=== PATIENT | female | born 1940 | race Caucasian/White ===

== ENCOUNTER 2016-04-07 09:40 | Day surgery (SDC) | payer MEDICARE, BC ==
[2016-04-02 13:28] VITALS: BMI 16.5
[~2016-04-07 09:40] MED LIST: LACTATED RINGERS 1,000 ML IV SCH; LIDOCAINE 1% 20 ML VIAL (10MG/ML) FOR IV START INTRADERMA PRN
[2016-04-07 10:47] VITALS: TEMP 97.7
[2016-04-07] MEDS ORDERED: PROPOFOL 10 MG/ML 20 ML VIAL IV ONE (11:07)
--- NOTE | 2016-04-07 11:26 | P.PCN ---
Date of Procedure: 04/07/16 Procedure(s) Performed: BRIEF HISTORY: Patient is a 75-year-old pleasant white female, scheduled for an elective colonoscopy as a part of evaluation of screening for colorectal neoplasia. She was recently noted to have a positive cologard on stool testing. PROCEDURE PERFORMED: Colonoscopy with snare polypectomy. PREOPERATIVE DIAGNOSIS: Screening for colon cancer/positive stool testing for cologard. IV sedation per Anesthesia. PROCEDURE: After informed consent was obtained, the patient, was brought into the endoscopy unit. IV conscious sedation was administered by Anesthesia under continuous monitoring. Initially the Olympus CF-160 flexible video colonoscope was then inserted in the rectum, gradually advanced into the cecum without any difficulty. Careful examination was performed as the scope was gradually being withdrawn. Ileocecal valve and the appendiceal orifice were visualized and appeared normal. Prep was excellent. Mucosa of the cecum, appeared normal. On the ileocecal valve there was a 1 cm polyp removed by snare polypectomy. The rest of the ascending colon, transverse colon, descending colon, sigmoid colon, and rectum appeared normal. In the proximal rectum there was a 5 mm polyp removed by snare polypectomy. Retroflexion was performed in the rectum and no lesions were seen. The patient tolerated the procedure well. IMPRESSION: 1 cm polyp on the ileocecal valve status post polypectomy 5 mm proximal rectal polyp status post polypectomy RECOMMENDATIONS: Findings of this examination were discussed with the patient as well as a family. She was advised to follow with the biopsy results. If the biopsy shows a tubular adenoma she can have a repeat colonoscopy in 3 years.
[2016-04-07 12:07] VITALS: BP 138/66; PULSE 93; RESP 18
== END 2016-04-07 12:16 | disposition home or self-care (01) ==
LOC: ORWHC2ENDO 09:40
PROVIDERS: ATTEND Internal Medicine Gastroenterology
DX: Z12.11 Encounter for screening for malignant neoplasm of colon (principal); D12.0 Benign neoplasm of cecum; K62.1 Rectal polyp; I10 Essential (primary) hypertension; J44.9 Chronic obstructive pulmonary disease, unspecified; Z72.0 Tobacco use; Z79.899 Other long term (current) drug therapy; Z88.0 Allergy status to penicillin
CPT/HCPCS: 88305; 45385; J2704; 99153

== ENCOUNTER → 2016-04-29 | Outpatient (CLI) | payer MEDICARE, BC ==
[~2016-04-29] MED LIST changes: +DOBUTamine DRIP for NUC MED 500 MG in DEXTROSE/WATER 1 250ML.BAG IV ONE; -LACTATED RINGERS 1,000 ML IV SCH; -LIDOCAINE 1% 20 ML VIAL (10MG/ML) FOR IV START INTRADERMA PRN
--- NOTE | 2016-04-30 12:32 | ECHOS ---
DATE OF SERVICE: 04/29/2016 AGE: 75Y SEX: F HT: 63" WT: 90 lbs. Protocol Paul: X Others: Dobutamine Stress Echo Stage: Dur. of Exercise: *Heart Rate Blood Pressure *Rest: 89 Rest: 96/52 * *Max. Achieved: 129 Maximum BP: 90/60 85% PMHR: 124 100% PMHR: 146 *METS: INDICATIONS: Abnormal EKG. MEDICATIONS: Pulmicort, losartan, Pravachol. Patient was given dobutamine infusion according to the standard protocol. Peak heart rate of 129 was achieved. Maximum blood pressure of 90/60 mmHg was noted. Resting EKG shows normal sinus rhythm with normal NH interval and QRS duration and normal ST-T waves. No ST segment depression suggestive of ischemia is noted. Occasional PACs were noted. The baseline echocardiographic images reveals a normal left ventricular chamber size with normal left ventricular systolic function. At the peak dose of dobutamine infusion, normal increase in the wall thickness and contractility is noted. FINAL IMPRESSION: This dobutamine stress echocardiographic study is negative for stress-induced ischemia. EKG portion of the stress test is not suggestive of ischemia. Occasional PVCs are noted.
== END | disposition home or self-care (01) ==
LOC: RADNMMAIN 09:06
PROVIDERS: ATTEND Family Medicine
DX: R94.31 Abnormal electrocardiogram [ECG] [EKG] (principal)
CPT/HCPCS: 93017; 93350; J1250

== ENCOUNTER → 2017-06-29 | Outpatient (CLI) | payer MEDICARE, BC ==
--- NOTE | 2017-06-29 12:59 | US ---
EXAMINATION TYPE: US kidneys/renal and bladder DATE OF EXAM: 06/29/2017 COMPARISON: 11/13/2013 CLINICAL HISTORY: N17.9 Acute Kidney Injury. not symptomatic EXAM MEASUREMENTS: Right Kidney: 6.8 x 2.9 x 2.6 cm Left Kidney: 12.9 x 5.3 x 4.7 cm Right Kidney: smaller in size with cortical thinning Left Kidney: 4.7cm inferior pole cyst appears larger from previous exam Bladder: wnl Bilateral Jets seen: Yes IMPRESSION: 1. There is a 4.7 cm cyst left kidney is increased in size from the previous exam but has a simple ap pearance compatible with Bosniak classification 1 cyst. 2. Atrophy of the right kidney. Appears to be reduced in size relative to the previous exam where it measured 10.2 x 4.3 x 3.6 cm.
== END | disposition home or self-care (01) ==
LOC: RADUSWWP 06-28 12:15
PROVIDERS: ATTEND Internal Medicine Nephrology
DX: N28.1 Cyst of kidney, acquired (principal); N26.1 Atrophy of kidney (terminal); N17.9 Acute kidney failure, unspecified
CPT/HCPCS: 76770

== ENCOUNTER → 2017-10-28 | Outpatient (CLI) | payer MEDICARE, BC ==
[~2017-10-28] MED LIST changes: +DENOSUMAB 60 MG/ML 1 ML SYRINGE SQ ONE; -DOBUTamine DRIP for NUC MED 500 MG in DEXTROSE/WATER 1 250ML.BAG IV ONE
[2017-10-28 11:43] VITALS: BP 131/61; PULSE 100; RESP 16; TEMP 97.8
== END | disposition home or self-care (01) ==
LOC: PROCWHC3 11:34
PROVIDERS: ATTEND Nurse Practitioner Adult Health
DX: M81.0 Age-related osteoporosis without current pathological fracture (principal)
CPT/HCPCS: 96372; J0897

== ENCOUNTER → 2018-03-28 | Outpatient (CLI) | payer MEDICARE, BC ==
--- NOTE | 2018-03-28 13:08 | CTL ---
EXAMINATION TYPE: CT Low Dose Lung DATE OF EXAM ORDERED: 03/28/2018 HISTORY: . Lung cancer screening CT DLP: [address] CTDI: 1.38 mGy Automated exposure control for dose reduction was used. SCREENING VISIT: COMPARISON: 02/14/2017 TECHNIQUE: Low dose computed tomography scan was performed through the chest at 1 mm thick sections a nd reconstructed images in the coronal plane at [address] DIAGNOSTIC QUALITY: Satisfactory FINDINGS: LUNG NODULES: None. LUNGS: COPD: Severity: Emphysematous changes stable Fibrosis: Severity: Stable interlobular septal thickening compatible with chronic interstitial lung d isease. Lymph nodes: Calcified mediastinal nodes are again seen. RIGHT PLEURAL SPACE: Effusion: None Calcification: None Thickening: Moderate apical pleural thickening Pneumothorax: None LEFT PLEURAL SPACE: Effusion: None Calcification: None Thickening: Moderate apical pleural thickening increased in size and somewhat nodular. Pneumothorax: None HEART: Heart Size: Within normal limits for size Coronary calcification: Extensive dense coronary artery calcification Pericardial effusion: None OTHER FINDINGS: Upper abdomen: Atherosclerotic change of aorta and mesenteric vasculature. 1.4 cm hepatic lesion dasia uring 14 Hounsfield units Bony thorax: Hypertrophic and degenerative changes. Supraclavicular region: Stable Other: Splenic calcifications likely related to granuloma. 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 IMPRESSION: 1. No suspicious nodules identified. Pleural apical thickening stable 2. Extensive mediastinal adenopathy and findings compatible with previous granulomatous disease. 3. Emphysematous changes and findings compatible with chronic interstitial lung disease. 4. Indeterminate hepatic lesion likely related to hepatic cyst. Correlate with ultrasound. FOLLOW UP CT CHEST RECOMMENDATION: Follow-up in one year recommended CT LUNG RAD: Lung-Rad 1 Negative
== END | disposition home or self-care (01) ==
LOC: RADCTMAIN 12:01
PROVIDERS: ATTEND Family Medicine
DX: Z12.2 Encounter for screening for malignant neoplasm of respiratory organs (principal); J92.9 Pleural plaque without asbestos; R59.0 Localized enlarged lymph nodes; J43.9 Emphysema, unspecified; Z87.891 Personal history of nicotine dependence

== ENCOUNTER → 2018-04-19 | Outpatient (CLI) | payer MEDICARE, BC ==
--- NOTE | 2018-04-19 16:04 | US ---
EXAMINATION TYPE: US liver DATE OF EXAM: 04/19/2018 COMPARISON: CLINICAL HISTORY: K76.89 DISEASE OF LIVER. Liver cysts, no surgeries EXAM MEASUREMENTS: Liver Length: 14.2 cm Gallbladder Wall: 0.2 cm CBD: 0.2 cm Right Kidney: 6.9 x 3.0 x 2.7 cm Pancreas: Tail obscured by overlying bowel gas. Main pancreatic duct - 0.2 cm. Echogenic in appear ance Liver: Multiple cystic appearing lesions seen. Largest were measured. Right posterior lobe - 1.1 x 1.3 x 1.0 cm. Right lobe anterior - 1.3 x 0.9 x 1.0 cm Gallbladder: wnl Evidence for sonographic Henning's sign: neg CBD: wnl Right Kidney: Appears small in size. Cortical thinning. Prominent pyramids. IMPRESSION: 1. Multiple hepatic cysts. 2. Cortical thinning and atrophic change right kidney.
== END | disposition home or self-care (01) ==
LOC: RADUSWWP 15:13
PROVIDERS: ATTEND Family Medicine
DX: K76.89 Other specified diseases of liver (principal); N26.1 Atrophy of kidney (terminal)
CPT/HCPCS: 76705

== ENCOUNTER → 2018-05-03 | Outpatient (CLI) | payer MEDICARE, BC ==
[2018-05-03 11:20] VITALS: BP 133/68; PULSE 96; RESP 16; TEMP 97.7
== END | disposition home or self-care (01) ==
LOC: PROCWHC3 11:00
PROVIDERS: ATTEND Nurse Practitioner Adult Health
DX: M81.0 Age-related osteoporosis without current pathological fracture (principal)
CPT/HCPCS: 96372; J0897

== ENCOUNTER → 2018-11-02 | Outpatient (CLI) | payer MEDICARE, BC ==
[2018-11-02 13:00] VITALS: BP 154/56; PULSE 99; RESP 18; TEMP 97.8
== END | disposition home or self-care (01) ==
LOC: PROCWHC3 12:50
PROVIDERS: ATTEND Nurse Practitioner Adult Health
DX: M81.0 Age-related osteoporosis without current pathological fracture (principal)
CPT/HCPCS: 96372; J0897

== ENCOUNTER 2019-03-23 13:37 | Inpatient (IN) | payer MEDICARE, BC ==
--- NOTE | 2019-03-23 14:24 | ED ---
General Adult HPI - General Chief complaint: Recheck/Abnormal Lab/Rx Stated complaint: Abn EKG Time Seen by Provider: 03/23/19 13:55 Source: patient, RN notes reviewed, old records reviewed Mode of arrival: ambulatory Limitations: no limitations - History of Present Illness Initial comments: This is a 78-year-old female presents emergency Department complaining of shortness of breath and dizziness. Patient states she saw her primary medical care doctor in the past for this and was treated with steroids and antibiotics and she has not improved. Patient states she still has a couple days left of her steroids. Patient states he still remained short of breath and coughs occasionally only. Patient denies any chest pain or palpitations. Patient also complains of dizziness and she states is been ongoing a couple weeks. Patient states she has a sensation that she's been a fall and no sensation of passing out or passing out. Patient states she feels off balance. Patient denies any fever or chills. Patient denies any abdominal pain patient denies nausea vomiting. - Related Data Home Medications Medication Instructions Recorded Confirmed ALPRAZolam [Xanax] 0.25 mg PO DAILY PRN 04/02/16 11/02/18 Albuterol Inhaler [Ventolin Hfa 2 puff INHALATION HS 04/02/16 11/02/18 Inhaler] Albuterol Nebulized [Ventolin 2.5 mg INHALATION BID 04/02/16 11/02/18 Nebulized] Anastrozole [Arimidex] 1 mg PO DAILY 04/02/16 11/02/18 Calcium Carbonate [Calcium] 1,200 mg PO DAILY 04/02/16 11/02/18 Cholecalciferol [Vitamin D3] 2,000 unit PO DAILY 04/02/16 11/02/18 Losartan Potassium [Cozaar] 50 mg PO HS 04/02/16 11/02/18 Pravastatin Sodium [Pravachol] 40 mg PO DAILY 04/02/16 11/02/18 amLODIPine BESYLATE [Norvasc] 10 mg PO DAILY 04/02/16 11/02/18 Allergies Allergy/AdvReac Type Severity Reaction Status Date / Time Penicillins Allergy Rash/Hives Verified 03/23/19 13:54 brazil nuts Allergy Anaphylaxis Uncoded 03/23/19 13:54 Review of Systems ROS Statement: Those systems with pertinent positive or pertinent negative responses have been documented in the HPI. ROS Other: All systems not noted in ROS Statement are negative. Past Medical History Past Medical History: Cancer, COPD, Hyperlipidemia, Hypertension, Renal Disease Additional Past Medical History / Comment(s): hx: breast cancer, states was recently told that she may have some heart blockage issues plans to followup with piano teacher. KIDNEY AND LIVER CYST. OSTEOPOROSIS. History of Any Multi-Drug Resistant Organisms: None Reported Past Surgical History: Breast Surgery Additional Past Surgical History / Comment(s): lt mastectomy Past Anesthesia/Blood Transfusion Reactions: No Reported Reaction Past Psychological History: Anxiety Smoking Status: Heavy tobacco smoker Past Alcohol Use History: None Reported Past Drug Use History: None Reported - Past Family History Mother Family Medical History: Cancer Brother(s) Family Medical History: Cancer General Exam - General Exam Comments Initial Comments: GENERAL: Patient is well-developed and well-nourished. Patient is nontoxic and well- hydrated and is in mild distress. ENT: Neck is soft and supple. No significant lymphadenopathy is noted. Oropharynx is clear. Moist mucous membranes. Neck has full range of motion without eliciting any pain. Both TMs were visualized there did not appear to be any fluid redness or bulging of the TMs. EYES: The sclera were anicteric and conjunctiva were pink and moist. Extraocular movements were intact and pupils were equal round and reactive to light. Eyelids were unremarkable. PULMONARY: Patient has diminished breath sounds throughout. CARDIOVASCULAR: There is a regular rate and rhythm without any murmurs gallops or rubs. ABDOMEN: Soft and nontender with normal bowel sounds. No palpable organomegaly was noted. There is no palpable pulsatile mass. SKIN: Skin is clear with no lesions or rashes and otherwise unremarkable. NEUROLOGIC: Patient is alert and oriented x3. Cranial nerves II through XII are grossly intact. Motor and sensory are also intact. Normal speech, volume and content. Symmetrical smile. MUSCULOSKELETAL: Normal extremities with adequate strength and full range of motion. LYMPHATICS: No significant lymphadenopathy is noted PSYCHIATRIC: Normal psychiatric evaluation. Limitations: no limitations Course Vital Signs 03/23/19 03/23/19 03/23/19 13:52 14:28 15:35 Temperature 97.3 F L Pulse Rate 102 H 96 96 Respiratory 22 22 16 Rate Blood Pressure 135/85 181/93 181/93 O2 Sat by Pulse 94 L 92 L 94 L Oximetry Medical Decision Making - Medical Decision Making EKG shows sinus rhythm with occasional PVC at a rate of 90 bpm DC interval 124 tresses 88 QT interval 362 QTC is 462. Chest x-ray shows no acute abnormality. Patient continues to feel dizzy and still feels short of breath. - Lab Data Result diagrams: 03/23/19 14:27 03/23/19 14:27 Lab Results 03/23/19 03/23/19 03/23/19 Range/Units 14:27 14:27 14:27 WBC 12.6 H (3.8-10.6) k/uL RBC 5.07 (3.80-5.40) m/uL Hgb 15.4 (11.4-16.0) gm/dL Hct 44.3 (34.0-46.0) % MCV 87.4 (80.0-100.0) fL MCH 30.4 (25.0-35.0) pg MCHC 34.8 (31.0-37.0) g/dL RDW 12.7 (11.5-15.5) % Plt Count 221 (150-450) k/uL Neutrophils % 76 % Lymphocytes % 14 % Monocytes % 7 % Eosinophils % 1 % Basophils % 2 % Neutrophils # 9.5 H (1.3-7.7) k/uL Lymphocytes # 1.8 (1.0-4.8) k/uL Monocytes # 0.9 (0-1.0) k/uL Eosinophils # 0.1 (0-0.7) k/uL Basophils # 0.2 (0-0.2) k/uL PT (9.0-12.0) sec INR (<1.2) APTT (22.0-30.0) sec Sodium 136 L (137-145) mmol/L Potassium 3.4 L (3.5-5.1) mmol/L Chloride 97 L (98-107) mmol/L Carbon Dioxide 30 (22-30) mmol/L Anion Gap 9 mmol/L BUN 22 H (7-17) mg/dL Creatinine 0.88 (0.52-1.04) mg/dL Est GFR (CKD-EPI)AfAm 74 (>60 ml/min/1.73 sqM) Est GFR (CKD-EPI)NonAf 64 (>60 ml/min/1.73 sqM) Glucose 125 H (74-99) mg/dL Calcium 10.2 (8.4-10.2) mg/dL Magnesium 1.8 (1.6-2.3) mg/dL Total Bilirubin 0.8 (0.2-1.3) mg/dL AST 26 (14-36) U/L ALT 15 (4-34) U/L Alkaline Phosphatase 88 (38-126) U/L Troponin I (0.000-0.034) ng/mL NT-Pro-B Natriuret Pep 1050 pg/mL Total Protein 7.4 (6.3-8.2) g/dL Albumin 4.4 (3.5-5.0) g/dL 03/23/19 03/23/19 Range/Units 14:27 14:27 WBC (3.8-10.6) k/uL RBC (3.80-5.40) m/uL Hgb (11.4-16.0) gm/dL Hct (34.0-46.0) % MCV (80.0-100.0) fL MCH (25.0-35.0) pg MCHC (31.0-37.0) g/dL RDW (11.5-15.5) % Plt Count (150-450) k/uL Neutrophils % % Lymphocytes % % Monocytes % % Eosinophils % % Basophils % % Neutrophils # (1.3-7.7) k/uL Lymphocytes # (1.0-4.8) k/uL Monocytes # (0-1.0) k/uL Eosinophils # (0-0.7) k/uL Basophils # (0-0.2) k/uL PT 10.3 (9.0-12.0) sec INR 1.0 (<1.2) APTT 19.7 L (22.0-30.0) sec Sodium (137-145) mmol/L Potassium (3.5-5.1) mmol/L Chloride (98-107) mmol/L Carbon Dioxide (22-30) mmol/L Anion Gap mmol/L BUN (7-17) mg/dL Creatinine (0.52-1.04) mg/dL Est GFR (CKD-EPI)AfAm (>60 ml/min/1.73 sqM) Est GFR (CKD-EPI)NonAf (>60 ml/min/1.73 sqM) Glucose (74-99) mg/dL Calcium (8.4-10.2) mg/dL Magnesium (1.6-2.3) mg/dL Total Bilirubin (0.2-1.3) mg/dL AST (14-36) U/L ALT (4-34) U/L Alkaline Phosphatase (38-126) U/L Troponin I <0.012 (0.000-0.034) ng/mL NT-Pro-B Natriuret Pep pg/mL Total Protein (6.3-8.2) g/dL Albumin (3.5-5.0) g/dL Disposition Clinical Impression: COPD with acute exacerbation, Vertigo Disposition: ADMITTED IP TO THIS HOSP Referrals: Agustin Rivera MD [Primary Care Provider] - 1-2 days Time of Disposition: 15:41
[2019-03-23 14:43] LABS: Basophils # (A) 0.2 k/uL (0-0.2); Basophils % (A) 2 %; Eosinophils # (A) 0.1 k/uL (0-0.7); Eosinophils % (A) 1 %; HCT 44.3 % (34.0-46.0); HGB 15.4 gm/dL (11.4-16.0); Lymphocytes # (A) 1.8 k/uL (1.0-4.8); Lymphocytes % (A) 14 %; MCH 30.4 pg (25.0-35.0); MCHC 34.8 g/dL (31.0-37.0); MCV 87.4 fL (80.0-100.0); Mean Platelet Volume 7.5; Monocytes # (A) 0.9 k/uL (0-1.0); Monocytes % (A) 7 %; Neutrophils # (A) 9.5 k/uL (1.3-7.7); Neutrophils % (A) 76 %; Platelet Count 221 k/uL (150-450); RBC 5.07 m/uL (3.80-5.40); RDW 12.7 % (11.5-15.5); WBC 12.6 k/uL (3.8-10.6)
[2019-03-23 14:54] LABS: Albumin 4.4 g/dL (3.5-5.0); Calcium 10.2 mg/dL (8.4-10.2); Magnesium 1.8 mg/dL (1.6-2.3); Potassium 3.4 mmol/L (3.5-5.1); Total Bilirubin 0.8 mg/dL (0.2-1.3); Total Protein 7.4 g/dL (6.3-8.2)
[2019-03-23 15:00] LABS: Prothrombin Time 10.3 sec (9.0-12.0)
[2019-03-23 15:03] LABS: Partial Thromboplastin Time 19.7 sec (22.0-30.0)
--- NOTE | 2019-03-23 15:20 | XR ---
EXAMINATION TYPE: XR chest 2V DATE OF EXAM: 03/23/2019 COMPARISON: NONE TECHNIQUE: PA and lateral views submitted. HISTORY: Difficulty breathing FINDINGS: The lungs are clear and there is no pneumothorax, pleural effusion, or focal pneumonia. Hyperexpans ion suggests COPD. Atherosclerotic change aorta. Calcified lymph nodes in the hilum noted. Biapical p leural thickening. No overt failure. Hypertrophic change of the spine. IMPRESSION: 1. No acute process. 2. COPD.
--- NOTE | 2019-03-23 15:23 | CT ---
EXAMINATION TYPE: CT brain wo con DATE OF EXAM: 03/23/2019 COMPARISON: INDICATION: dizziness and weakness. DLP: 1099.4 mGycm, Automated exposure control for dose reduction was used. CONTRAST: None CT of the brain is performed utilizing 3 mm thick sections through the posterior fossa and 3 mm thick sections through the remaining calvarium. Study is performed within 24 hours of arrival to the hosp ital. No abnormal hyperdensity is present to suggest an acute intracranial hemorrhage. No mass lesion is evident. No acute infarcts are evident. Ventricles and sulci are appropriate for the patient age. Paranasal sinuses and mastoid air cells within the [id number] are clear. IMPRESSIONS: 1. Normal CT Brain
[2019-03-23] MEDS ORDERED: IPRATROPIUM-ALBUTEROL 3 ML NEB INHALATION STA (15:42)
[2019-03-23] MEDS ORDERED: methylPREDNISolone SOD SUCCI 125 MG/2 ML VIAL IV STA (15:42)
[2019-03-23] MEDS ORDERED: MECLIZINE 25 MG TAB PO PRN (15:44)
[2019-03-23] MEDS: IPRATROPIUM-ALBUTEROL 3 ML NEB INHALATION SCH ×2 (16:16→20:05)
[2019-03-23] MEDS ORDERED: ALBUTEROL NEBULIZED 2.5 MG/3 ML INHALATION PRN (18:48)
[2019-03-23] MEDS ORDERED: ALPRAZolam 0.25 MG TAB PO PRN (18:48)
[2019-03-23] MEDS ORDERED: ALBUTEROL INHALER 60 PUFF/8 GM INHALER INHALATION PRN (18:48)
[2019-03-23] MEDS: SODIUM CHLORIDE 0.9% 1,000 ML IV SCH (19:01)
[2019-03-23] MEDS ORDERED: ARTIFICIAL TEARS OINTMENT 3.5 GM TUBE BOTH EYES PRN (21:05)
[2019-03-23] MEDS: PRAVASTATIN SODIUM 40 MG TAB PO SCH (21:31)
[2019-03-23] MEDS: CHOLECALCIFEROL 1,000 UNIT TAB PO SCH (21:31)
[2019-03-23] MEDS: POTASSIUM CHLORIDE ER 10 MEQ TAB.ER.PRT PO SCH (21:31)
[2019-03-23] MEDS: LOSARTAN 50 MG TAB PO SCH (21:32)
[2019-03-23] MEDS: CALCIUM CARBONATE 500 MG CHEWABLE PO SCH (21:32)
[2019-03-24] MEDS: methylPREDNISolone SOD SUCCI 125 MG/2 ML VIAL IV SCH ×4 (00:45→17:20)
[2019-03-24] MEDS: SODIUM CHLORIDE 0.9% 1,000 ML IV SCH ×3 (01:40→16:46)
[2019-03-24] MEDS: IPRATROPIUM-ALBUTEROL 3 ML NEB INHALATION SCH ×4 (07:27→20:04)
[2019-03-24] MEDS: ANASTROZOLE 1 MG TAB PO SCH (08:50)
[2019-03-24] MEDS: POTASSIUM CHLORIDE ER 20 MEQ TAB.ER PO SCH (08:50)
[2019-03-24] MEDS: CHOLECALCIFEROL 1,000 UNIT TAB PO SCH ×2 (08:50→19:59)
[2019-03-24] MEDS: amLODIPine 5 MG TAB PO SCH (08:50)
[2019-03-24] MEDS: CALCIUM CARBONATE 500 MG CHEWABLE PO SCH ×2 (08:50→19:59)
[2019-03-24] MEDS: ACETAMINOPHEN TAB 325 MG TAB PO PRN (12:26)
--- NOTE | 2019-03-24 13:44 | P.CNPUL ---
History of Present Illness Consult date: 03/24/19 Requesting physician: Yung Lowry Chief complaint: Shortness of breath, cough, congestion History of present illness: This is a very pleasant 78-year-old female patient who follows with Dr. Rivera as her primary care physician. She has a history of hyperlipidemia, hypertension, breast cancer, osteoporosis, anxiety, COPD. She has chronic and ongoing heavy tobacco dependence. She is maintained on Trelegy and Ventolin in the outpatient setting. She was admitted for increasing shortness of breath, cough congestion, dizziness. She had been treated with antibiotics and steroids and outpatient setting without much improvement. White count 12.6. Hemoglobin 15.4. Creatinine 0.88. Sodium 136. Potassium 3.4. ProBNP 1050. Troponin negative 1. She been initiated on DuoNeb inhalations, Symbicort, IV Solu-M edrol. Chest x-ray reveals evidence of chronic obstructive pulmonary disease but no acute pulmonary process. Computed tomography scan of the brain revealed no acute abnormalities. She is seen today in consultation in the observation unit. She is currently sitting up in bed. Awake and alert in no acute distress. She is maintaining O2 saturation in the low 90s on 2 L/m per nasal cannula. She's afebrile. Tachycardic. Dyspneic with minimal conversation. Review of Systems REVIEW OF SYSTEMS: CONSTITUTIONAL: Denies any recent significant weight loss or weight gain. EYES: Denies change in vision. EARS, NOSE, MOUTH, THROAT: Denies headaches, denies sore throat. CARDIOVASCULAR: Denies chest pain, palpitations, positive for dizziness. RESPIRATORY: Positive for shortness of breath, cough, congestion no hemoptysis. GASTROINTESTINAL: Denies change in appetite, denies abdominal pain GENITOURINARY: Denies hematuria, denies infections. MUSKULOSKELETAL: Denies pain, denies swelling. INTEGUMENTARY: Denies rash, denies eczema. NEUROLOGICAL: Denies recent memory loss, no recent seizure activity. PSYCHIATRIC: Denies anxiety, denies depression. HEMATOLOGIC/LYMPHATIC: Denies anemia, denies enlarged lymph nodes. Past Medical History Past Medical History: Cancer, COPD, Hyperlipidemia, Hypertension, Renal Disease Additional Past Medical History / Comment(s): hx: breast cancer. KIDNEY AND LIVER CYST. OSTEOPOROSIS. History of Any Multi-Drug Resistant Organisms: None Reported Past Surgical History: Breast Surgery Additional Past Surgical History / Comment(s): lt mastectomy Past Anesthesia/Blood Transfusion Reactions: No Reported Reaction Past Psychological History: Anxiety Smoking Status: Heavy tobacco smoker Past Alcohol Use History: None Reported Additional Past Alcohol Use History / Comment(s): smoker 50 years 15-20 cigarettes/day Past Drug Use History: None Reported - Past Family History Mother Family Medical History: Cancer Brother(s) Family Medical History: Cancer Medications and Allergies Home Medications Medication Instructions Recorded Confirmed Type ALPRAZolam [Xanax] 0.125 - 0.25 mg PO BID PRN 04/02/16 03/23/19 History Albuterol Inhaler [Ventolin Hfa 2 puff INHALATION RT-QID PRN 04/02/16 03/23/19 History Inhaler] Albuterol Nebulized [Ventolin 2.5 mg INHALATION RT-QID PRN 04/02/16 03/23/19 History Nebulized] Anastrozole [Arimidex] 1 mg PO DAILY 04/02/16 03/23/19 History Calcium Carbonate [Calcium] 600 mg PO BID 04/02/16 03/23/19 History Cholecalciferol [Vitamin D3] 1,000 unit PO BID 04/02/16 03/23/19 History Losartan Potassium [Cozaar] 50 mg PO HS 04/02/16 03/23/19 History Pravastatin Sodium [Pravachol] 40 mg PO HS 04/02/16 03/23/19 History Denosumab [Prolia] 60 mg SQ Q180D 03/23/19 03/23/19 History Fluticasone/Umeclidin/Vilanter 1 puff INHALATION RT-DAILY 03/23/19 03/23/19 History [Trelegy Ellipta 100-62.5-25] Potassium Chloride ER [K-Dur 20] 10 meq PO HS 03/23/19 03/23/19 History Potassium Chloride ER [K-Dur 20] 20 meq PO DAILY 03/23/19 03/23/19 History amLODIPine [Norvasc] 5 mg PO DAILY 03/23/19 03/23/19 History predniSONE See Taper PO DAILY 03/23/19 03/23/19 History Allergies Allergy/AdvReac Type Severity Reaction Status Date / Time Penicillins Allergy Rash/Hives Verified 03/23/19 16:15 brazil nuts Allergy Anaphylaxis Uncoded 03/23/19 13:54 Physical Exam Vitals: Vital Signs Temp Pulse Pulse Resp BP BP BP 03/24/19 12:50 100 03/24/19 12:38 103 H 03/24/19 12:22 97.7 F 106 H 16 152/64 03/24/19 08:47 98 F 105 H 20 163/77 03/24/19 07:38 100 03/24/19 07:30 101 H 03/24/19 04:00 97.9 F 67 17 132/68 03/24/19 00:00 97.9 F 111 H 18 131/71 03/23/19 20:19 100 03/23/19 20:05 100 03/23/19 18:54 97.9 F 98 17 148/75 03/23/19 16:36 97.3 F L 100 16 140/91 03/23/19 16:32 96 03/23/19 16:25 96 03/23/19 16:00 97.7 F 96 16 155/83 03/23/19 15:35 96 16 181/93 03/23/19 14:28 96 22 181/93 03/23/19 13:52 97.3 F L 102 H 22 135/85 Pulse Ox 03/24/19 12:50 03/24/19 12:38 03/24/19 12:22 92 L 03/24/19 08:47 93 L 03/24/19 07:38 03/24/19 07:30 95 03/24/19 04:00 96 03/24/19 00:00 03/23/19 20:19 03/23/19 20:05 03/23/19 18:54 98 03/23/19 16:36 94 L 03/23/19 16:32 03/23/19 16:25 03/23/19 16:00 95 03/23/19 15:35 94 L 03/23/19 14:28 92 L 03/23/19 13:52 94 L Intake and Output 03/23/19 03/24/19 03/24/19 22:59 06:59 14:59 Intake Total 0 Balance 0 Intake: Oral 0 Other: Voiding Method Toilet Toilet Toilet # Voids 1 2 Weight 42.6 kg GENERAL EXAM: Alert, active, 78-year-old female patient, on 2 L nasal cannula, comfortable in no apparent distress. HEAD: Normocephalic. EYES: Normal reaction of pupils, equal size. NOSE: Clear with pink turbinates. THROAT: No erythema or exudates. NECK: No masses, no JVD. CHEST: No chest wall deformity. LUNGS: Equal air entry with bilateral end expiratory wheeze, diminished. CVS: S1 and S2 normal with no audible murmur, regular rhythm. ABDOMEN: No hepatosplenomegaly, normal bowel sounds, no guarding or rigidity. SPINE: No scoliosis or deformity SKIN: No rashes CENTRAL NERVOUS SYSTEM: No focal deficits, tone is normal in all 4 extremities. EXTREMITIES: There is no peripheral edema. No clubbing, no cyanosis. Peripheral pulses are intact. Results - Laboratory Findings CBC and BMP: 03/23/19 14:27 03/23/19 14:27 PT/INR, D-dimer PT 10.3 sec (9.0-12.0) 03/23/19 14:27 INR 1.0 (<1.2) 03/23/19 14:27 Abnormal lab findings: Abnormal Labs 03/23/19 03/23/19 03/23/19 14:27 14:27 14:27 WBC 12.6 H Neutrophils # 9.5 H APTT 19.7 L Sodium 136 L Potassium 3.4 L Chloride 97 L BUN 22 H Glucose 125 H - Diagnostic Findings Chest x-ray: image reviewed (Evidence of COPD, no acute process) Assessment and Plan Assessment: 1 Acute hypoxic respiratory failure secondary to an acute exacerbation of chronic obstructive pulmonary disease, failed outpatient treatment 2 Dizziness of unclear etiology possibly due to hypoxemia 3 History of chronic tobacco dependence 4 Hypertension. 5 Hyperlipidemia. 6 History of breast cancer, left mastectomy 7 Anxiety 8 Osteoporosis. Plan: The patient was seen and evaluated by Dr. Mendoza. Chest x-ray and labs reviewed. We'll treat her for suspected COPD exacerbation. Continue bronchodilators and IV Solu-Medrol. No evidence of pneumonia. She would benefit from a follow-up in our office for recurrent perform full pulmonary function testing to evaluate the severity of her COPD and make recommendations for her maintenance medications. She is educated regarding the importance of complete smoking cessation. We will continue to follow. I, the cosigning physician, performed a history & physical examination of the patient. Lungs sounds with bilateral end expiratory wheeze, diminished. Maintaining good O2 saturations in the 90s on 2 L/m per nasal cannula. I discussed the assessment and plan of care with my nurse practitioner, Naheed Morrison. I attest to the above consultation as dictated by her. Time with Patient: Greater than 30
[2019-03-24 14:59] VITALS: BMI 16.6
[2019-03-24] MEDS ORDERED: FLUCONAZOLE 100 MG TAB PO ONE (19:09)
--- NOTE | 2019-03-24 19:21 | P.HPIM ---
History of Present Illness H&P Date: 03/24/19 Chief Complaint: Lightheaded History of presenting complaint: This is a very pleasant 78-year-old patient of Dr. Agustin Rivera. Chronic stable medical conditions include hypertension, hyperlipidemia, anxiety. Patient's had a prior breast cancer with left mastectomy. Long-standing smoker. Quit 2 weeks patient's been feeling somewhat lightheaded off balance. Denies any change in vision. No headache. No change in speech. No focal weakness. Patient also short of breath cough decreased appetite some which is chronic. No fever no chills. Her lightheadedness is better at rest and worse if she gets up and does things. Patient has some chronic low back pain. Has continued to smoke. Review of systems: GEN.: Tired, weak EYES: None HEENT: None NECK: None RESPIRATORY: As above CARDIOVASCULAR: None GASTROINTESTINAL: None GENITOURINARY: None MUSCULOSKELETAL: Chronic low back pain LYMPHATICS: None HEMATOLOGICAL: None PSYCHIATRY: Some anxiety NEUROLOGICAL: None Past medical history to include: COPD, hypertension, hyperlipidemia, breast cancer with left mastectomy, anxiety, chronic low back pain, osteoporosis Social history: Does live alone. Smoking a pack a day average close to 50 years. Patient's 2 sons lives on either side of her house Physical examination: VITAL SIGNS: 97.7, 96, 18, 155/83, 95% GENERAL: [BMI 16.6, 1thin built loss of subcutaneous fat sitting up tired awake. EYES: Pupils equal. Conjunctiva normal. HEENT: External appearance of nose and ears normal, oral cavity-white spot in the pharynx. NECK: JVD not raised; masses not palpable. HEART: First and second heart sounds are normal; no edema. LUNGS: Respiratory rate increased, there are diminished breath sound probably expiration and wheezing. ABDOMEN: Soft, nontender, liver spleen not palpable, no masses palpable. PSYCH: [Alert and oriented x3; mood and affect slightly anxious. MUSCULOSKELETAL-loss of muscle mass and subcutaneous fat NEUROLOGICAL: Cranial nerves grossly intact; no facial asymmetry, power and sensation grossly intact. LYMPHATICS: No lymph nodes palpable in the axilla and neck INVESTIGATIONS, reviewed in the clinical context: White count 12.6 hemoglobin 15.4 progression 3.4 bun 22 creatinine 0.88 Troponin I less than 0.012 EKG tracing personally reviewed by me-normal sinus rhythm. Peaked P waves in lead [address]-negative Chest x-ray film personally reviewed by me-hyperinflation, prominent pulmonary arteries Assessment: -Patient reports 2 weeks has been feeling somewhat dizzy lightheaded with poor appetite. To baseline patient is already very weak with a BMI of 16.6. Possible element of dehydration given some elevation of BUN. -Acute COPD exacerbation with current smoker -Chronic nicotine dependence patient cigarette smoker -Essential hypertension -Hyperlipidemia -Oropharyngeal candidiasis -Severe protein calorie malnutrition from chronically decreased oral intake Plan: Patient started on nebulized bronchodilators, IV steroids. Had a Diflucan. Added nutritional supplements. Left dietitian see the patient. We'll check patient's orthostatics. Care was discussed in length with the patient and family the bedside. Including 2 sons. We'll also do carotid Doppler. Lovenox for DVT prophylaxis. Pulmonary was consulted. Past Medical History Past Medical History: Cancer, COPD, Hyperlipidemia, Hypertension, Renal Disease Additional Past Medical History / Comment(s): hx: breast cancer. KIDNEY AND LIVER CYST. OSTEOPOROSIS. History of Any Multi-Drug Resistant Organisms: None Reported Past Surgical History: Breast Surgery Additional Past Surgical History / Comment(s): lt mastectomy Past Anesthesia/Blood Transfusion Reactions: No Reported Reaction Past Psychological History: Anxiety Smoking Status: Heavy tobacco smoker Past Alcohol Use History: None Reported Additional Past Alcohol Use History / Comment(s): smoker 50 years 15-20 cigarettes/day Past Drug Use History: None Reported - Past Family History Mother Family Medical History: Cancer Brother(s) Family Medical History: Cancer Medications and Allergies Home Medications Medication Instructions Recorded Confirmed Type ALPRAZolam [Xanax] 0.125 - 0.25 mg PO BID PRN 04/02/16 03/23/19 History Albuterol Inhaler [Ventolin Hfa 2 puff INHALATION RT-QID PRN 04/02/16 03/23/19 History Inhaler] Albuterol Nebulized [Ventolin 2.5 mg INHALATION RT-QID PRN 04/02/16 03/23/19 History Nebulized] Anastrozole [Arimidex] 1 mg PO DAILY 04/02/16 03/23/19 History Calcium Carbonate [Calcium] 600 mg PO BID 04/02/16 03/23/19 History Cholecalciferol [Vitamin D3] 1,000 unit PO BID 04/02/16 03/23/19 History Losartan Potassium [Cozaar] 50 mg PO HS 04/02/16 03/23/19 History Pravastatin Sodium [Pravachol] 40 mg PO HS 04/02/16 03/23/19 History Denosumab [Prolia] 60 mg SQ Q180D 03/23/19 03/23/19 History Fluticasone/Umeclidin/Vilanter 1 puff INHALATION RT-DAILY 03/23/19 03/23/19 History [Trelegy Ellipta 100-62.5-25] Potassium Chloride ER [K-Dur 20] 10 meq PO HS 03/23/19 03/23/19 History Potassium Chloride ER [K-Dur 20] 20 meq PO DAILY 03/23/19 03/23/19 History amLODIPine [Norvasc] 5 mg PO DAILY 03/23/19 03/23/19 History predniSONE See Taper PO DAILY 03/23/19 03/23/19 History Allergies Allergy/AdvReac Type Severity Reaction Status Date / Time Penicillins Allergy Rash/Hives Verified 03/23/19 16:15 brazil nuts Allergy Anaphylaxis Uncoded 03/23/19 13:54 Physical Exam Vitals: Vital Signs Temp Pulse Pulse Resp BP BP BP 03/24/19 08:47 98 F 105 H 20 163/77 03/24/19 07:38 100 03/24/19 07:30 101 H 03/24/19 04:00 97.9 F 67 17 132/68 03/24/19 00:00 97.9 F 111 H 18 131/71 03/23/19 20:19 100 03/23/19 20:05 100 03/23/19 18:54 97.9 F 98 17 148/75 03/23/19 16:36 97.3 F L 100 16 140/91 03/23/19 16:32 96 03/23/19 16:25 96 03/23/19 16:00 97.7 F 96 16 155/83 03/23/19 15:35 96 16 181/93 03/23/19 14:28 96 22 181/93 03/23/19 13:52 97.3 F L 102 H 22 135/85 Pulse Ox 03/24/19 08:47 93 L 03/24/19 07:38 03/24/19 07:30 95 03/24/19 04:00 96 03/24/19 00:00 03/23/19 20:19 03/23/19 20:05 03/23/19 18:54 98 03/23/19 16:36 94 L 03/23/19 16:32 03/23/19 16:25 03/23/19 16:00 95 03/23/19 15:35 94 L 03/23/19 14:28 92 L 03/23/19 13:52 94 L Intake and Output 03/23/19 03/24/19 03/24/19 22:59 06:59 14:59 Intake Total 0 Balance 0 Intake: Oral 0 Other: Voiding Method Toilet Toilet Toilet # Voids 1 Weight 42.6 kg Results CBC & Chem 7: 03/23/19 14:27 03/23/19 14:27 Labs: Abnormal Lab Results - Last 24 Hours (Table) 03/23/19 03/23/19 03/23/19 Range/Units 14:27 14:27 14:27 WBC 12.6 H (3.8-10.6) k/uL Neutrophils # 9.5 H (1.3-7.7) k/uL APTT 19.7 L (22.0-30.0) sec Sodium 136 L (137-145) mmol/L Potassium 3.4 L (3.5-5.1) mmol/L Chloride 97 L (98-107) mmol/L BUN 22 H (7-17) mg/dL Glucose 125 H (74-99) mg/dL Thrombosis Risk Factor Assmnt - Choose All That Apply Any of the Below Risk Factors Present?: Yes Each Factor Represents 1 point: Abnormal pulmonary function (COPD) Other Risk Factors: Yes Each Risk Factor Represents 3 Points: Age 75 years or older Other congenital or acquired thrombophilia - If yes, enter type in comment: No Thrombosis Risk Factor Assessment Total Risk Factor Score: 4 Thrombosis Risk Factor Assessment Level: Moderate Risk
[2019-03-24] MEDS: ENOXAPARIN 40 MG/0.4 ML SYRINGE SQ SCH (19:59)
[2019-03-24] MEDS: PRAVASTATIN SODIUM 40 MG TAB PO SCH (19:59)
[2019-03-24] MEDS: POTASSIUM CHLORIDE ER 10 MEQ TAB.ER.PRT PO SCH (19:59)
[2019-03-24] MEDS: LOSARTAN 50 MG TAB PO SCH (19:59)
[2019-03-24] MEDS: LACTATED RINGERS 1,000 ML IV SCH (20:00)
[2019-03-24] MEDS: SYMBICORT 160-4.5 MCG INHALER INHALATION SCH (20:04)
[2019-03-24] MEDS: methylPREDNISolone SOD SUCCI 40 MG/ML 1 ML VIAL IV SCH (23:07)
[2019-03-25] MEDS: IPRATROPIUM-ALBUTEROL 3 ML NEB INHALATION SCH ×6 (00:11→19:35)
[2019-03-25] MEDS: LACTATED RINGERS 1,000 ML IV SCH ×3 (05:42→23:29)
[2019-03-25] MEDS: methylPREDNISolone SOD SUCCI 40 MG/ML 1 ML VIAL IV SCH ×3 (08:05→23:31)
[2019-03-25] MEDS: CHOLECALCIFEROL 1,000 UNIT TAB PO SCH ×2 (08:07→20:32)
[2019-03-25] MEDS: ENOXAPARIN 40 MG/0.4 ML SYRINGE SQ SCH (08:07)
[2019-03-25] MEDS: ANASTROZOLE 1 MG TAB PO SCH (08:07)
[2019-03-25] MEDS: CALCIUM CARBONATE 500 MG CHEWABLE PO SCH ×2 (08:07→20:32)
[2019-03-25] MEDS: POTASSIUM CHLORIDE ER 20 MEQ TAB.ER PO SCH (08:07)
[2019-03-25] MEDS: amLODIPine 5 MG TAB PO SCH (08:07)
[2019-03-25] MEDS: FLUCONAZOLE 100 MG TAB PO SCH (08:09)
[2019-03-25] MEDS: SYMBICORT 160-4.5 MCG INHALER INHALATION SCH ×2 (08:22→19:35)
--- NOTE | 2019-03-25 12:55 | P.PN ---
Subjective Progress Note Date: 03/25/19 Principal diagnosis: Acute hypoxic respiratory failure secondary to an acute exacerbation of chronic obstructive pulmonary disease This is a very pleasant 78-year-old female patient who follows with Dr. Rivera as her primary care physician. She has a history of hyperlipidemia, hypertension, breast cancer, osteoporosis, anxiety, COPD. She has chronic and ongoing heavy tobacco dependence. She is maintained on Trelegy and Ventolin in the outpatient setting. She was admitted for increasing shortness of breath, cough congestion, dizziness. She had been treated with antibiotics and steroids and outpatient setting without much improvement. White count 12.6. Hemoglobin 15.4. Creatinine 0.88. Sodium 136. Potassium 3.4. ProBNP 1050. Troponin negative 1. She been initiated on DuoNeb inhalations, Symbicort, IV Solu- Medrol. Chest x-ray reveals evidence of chronic obstructive pulmonary disease but no acute pulmonary process. Computed tomography scan of the brain revealed no acute abnormalities. She is seen today in consultation in the observation unit. She is currently sitting up in bed. Awake and alert in no acute distress. She is maintaining O2 saturation in the low 90s on 2 L/m per nasal cannula. She's afebrile. Tachycardic. Dyspneic with minimal conversation. The patient is seen today 03/25/2019 in follow-up in the observation unit. She is awake and alert in no acute distress. Breathing a bit easier today compared to yesterday. Not quite back to her baseline. Maintaining O2 saturation on the low 90s on 2 L/m per nasal cannula. Afebrile. Slightly tachycardic. Slightly anxious. His been maintained on DuoNeb inhalations, Symbicort, IV Solu-Medrol. Objective - Vital Signs Vital signs: Vital Signs Temp 98 F 03/25/19 11:38 Pulse 104 H 03/25/19 12:21 Resp 19 03/25/19 11:59 BP 155/74 03/25/19 11:38 Pulse Ox 91 L 03/25/19 11:38 Intake & Output 03/24/19 03/25/19 03/25/19 18:59 06:59 18:59 Weight 42.6 kg Other: Voiding Method Toilet Toilet Toilet # Voids 2 1 2 - Exam GENERAL EXAM: Alert, active, pleasant 78-year-old female patient on 2 L nasal cannula, comfortable in no apparent distress. HEAD: Normocephalic. EYES: Normal reaction of pupils, equal size. NOSE: Clear with pink turbinates. THROAT: No erythema or exudates. NECK: No masses, no JVD. CHEST: No chest wall deformity. LUNGS: Equal air entry with faint end expiratory wheeze, diminished. CVS: S1 and S2 normal with no audible murmur, regular rhythm. ABDOMEN: No hepatosplenomegaly, normal bowel sounds, no guarding or rigidity. SPINE: No scoliosis or deformity SKIN: No rashes CENTRAL NERVOUS SYSTEM: No focal deficits, tone is normal in all 4 extremities. EXTREMITIES: There is no peripheral edema. No clubbing, no cyanosis. Peripheral pulses are intact. - Labs CBC & Chem 7: 03/23/19 14:27 03/23/19 14:27 Assessment and Plan Assessment: 1 Acute hypoxic respiratory failure secondary to an acute exacerbation of chronic obstructive pulmonary disease, failed outpatient treatment 2 Dizziness of unclear etiology possibly due to hypoxemia 3 History of chronic tobacco dependence 4 Hypertension. 5 Hyperlipidemia. 6 History of breast cancer, left mastectomy 7 Anxiety 8 Osteoporosis. Plan: The patient was seen and evaluated by Dr. Mendoza. She is improved today compared to yesterday. Upon discharge she should complete prednisone burst and taper starting at 40 mg daily for 4 days. Continue albuterol and her Trelegy. She would benefit from a follow-up in our office for recurrent perform full pulmonary function testing to evaluate the severity of her COPD and make recommendations for her maintenance medications. She is again educated regarding the importance of complete smoking cessation. I, the cosigning physician, performed a history & physical examination of the patient. Lungs sounds with bilateral end expiratory wheeze, diminished. Maintaining good O2 saturations in the 90s on 2 L/m per nasal cannula. I discussed the assessment and plan of care with my nurse practitioner, Naheed Morrison. I attest to the above consultation as dictated by her.
[2019-03-25 16:10] VITALS: RESP 18
--- NOTE | 2019-03-25 18:12 | P.PN ---
Progress Note - Text Progress Note Date: 03/25/19 Chief Complaint: Lightheaded Interval history: This is a very pleasant 78-year-old patient of Dr. Agustin Rivera. Chronic stable medical conditions include hypertension, hyperlipidemia, anxiety. Patient's had a prior breast cancer with left mastectomy. Long-standing smoker. Quit 2 weeks patient's been feeling somewhat lightheaded off balance. Denies any change in vision. No headache. No change in speech. No focal weakness. Patient also short of breath cough decreased appetite some which is chronic. No fever no chills. Her lightheadedness is better at rest and worse if she gets up and does things. Patient has some chronic low back pain. Has continued to smoke. Admitted with acute COPD exacerbation and dehydration, oropharyngeal candidiasis Today-still short of breath. Easily gets short of breath. Cough. Weak and tired. Family the bedside. Sitting of the edge of the bed. Review of systems: Was done for constitutional, cardiovascular, GI, pulmonary. relevant finding as above Active Medications Acetaminophen (Tylenol Tab) 650 mg PO Q6HR PRN PRN Reason: Fever and/ or Pain Last Admin: 03/24/19 12:26 Dose: 650 mg Documented by: Albuterol Sulfate (Ventolin Nebulized) 2.5 mg INHALATION RT-QID PRN PRN Reason: Shortness Of Breath Albuterol/Ipratropium (Duoneb 0.5 Mg-3 Mg/3 Ml Soln) 3 ml INHALATION RT-Q4H [facility] Last Admin: 03/25/19 15:34 Dose: 3 ml Documented by: Alprazolam (Xanax) 0.25 mg PO BID PRN PRN Reason: Anxiety Amlodipine Besylate (Norvasc) 5 mg PO DAILY [facility] Last Admin: 03/25/19 08:07 Dose: 5 mg Documented by: Anastrozole (Arimidex) 1 mg PO DAILY [facility] Last Admin: 03/25/19 08:07 Dose: 1 mg Documented by: Budesonide/Formoterol Fumarate (Symbicort 160-4.5 Mcg Inhaler) 2 puff INHALATION RT-BID [facility] Last Admin: 03/25/19 08:22 Dose: 2 puff Documented by: Calcium Carbonate/Glycine (Tums) 500 mg PO BID [facility] Last Admin: 03/25/19 08:07 Dose: 500 mg Documented by: Cholecalciferol (Vitamin D3 (25 Mcg = 1000 Iu)) 1,000 unit PO BID [facility] Last Admin: 03/25/19 08:07 Dose: 1,000 unit Documented by: Enoxaparin Sodium (Lovenox) 40 mg SQ DAILY [facility] Last Admin: 03/25/19 08:07 Dose: 40 mg Documented by: Fluconazole (Diflucan) 100 mg PO DAILY [facility] Last Admin: 03/25/19 08:09 Dose: 100 mg Documented by: Lactated Ringer's (Lactated Ringers) 1,000 mls @ 100 mls/hr IV .Q10H [facility] Last Admin: 03/25/19 15:46 Dose: Not Given Documented by: Losartan Potassium (Cozaar) 50 mg PO [facility] Last Admin: 03/24/19 19:59 Dose: 50 mg Documented by: Methylprednisolone Sodium Succinate (Solu-Medrol) 40 mg IV Q8HR [facility] Last Admin: 03/25/19 15:47 Dose: 40 mg Documented by: Multi-Ingred Cream/Lotion/Oil/Oint (Lubrifresh Pm Ointment) 1 applic BOTH EYES TID PRN PRN Reason: Dry Eye(s) Last Admin: 03/23/19 21:29 Dose: 1 applic Documented by: Potassium Chloride (K-Dur 10) 10 meq PO [facility] Last Admin: 03/24/19 19:59 Dose: 10 meq Documented by: Potassium Chloride (K-Dur 20) 20 meq PO DAILY [facility] Last Admin: 03/25/19 08:07 Dose: 20 meq Documented by: Pravastatin Sodium (Pravachol) 40 mg PO [facility] Last Admin: 03/24/19 19:59 Dose: 40 mg Documented by: Physical examination: VITAL SIGNS: 98, 107, 19, 155/74, 91% on 2 L GENERAL: Sitting of the edge of the bed, short of breath. EYES: Pupils equal. Conjunctiva normal. HEENT: External appearance of nose and ears normal, oral cavity-white spot in the pharynx. NECK: JVD not raised; masses not palpable. HEART: First and second heart sounds are normal; no edema. LUNGS: Respiratory rate increased, diminished breath sound, prolonged expiration and wheezing. ABDOMEN: Soft, nontender, liver spleen not palpable, no masses palpable. PSYCH: [Alert and oriented x3; mood and affect slightly anxious. MUSCULOSKELETAL-loss of muscle mass and subcutaneous fat INVESTIGATIONS, reviewed in the clinical context: White count 12.6 hemoglobin 15.4 progression 3.4 bun 22 creatinine 0.88 Troponin I less than 0.012 EKG tracing personally reviewed by me-normal sinus rhythm. Peaked P waves in lead [address]-negative Chest x-ray film personally reviewed by me-hyperinflation, prominent pulmonary arteries Assessment: -dehydration given some elevation of BUN. -Acute advanced COPD exacerbation with current smoker, slow to respond -Chronic nicotine dependence patient cigarette smoker -Essential hypertension -Hyperlipidemia -Oropharyngeal candidiasis -Severe protein calorie malnutrition from chronically decreased oral intake Plan: Continue with nebulized bronchodilators, steroids, oxygen. Oral intake improving. Repeat labs in the morning. Patient probably still the hospital for another couple of days.
[2019-03-25] MEDS: LOSARTAN 50 MG TAB PO SCH (20:32)
[2019-03-25] MEDS: POTASSIUM CHLORIDE ER 10 MEQ TAB.ER.PRT PO SCH (20:32)
[2019-03-25] MEDS: PRAVASTATIN SODIUM 40 MG TAB PO SCH (20:32)
[2019-03-26] MEDS: ACETAMINOPHEN TAB 325 MG TAB PO PRN (03:30)
[2019-03-26] MEDS: IPRATROPIUM-ALBUTEROL 3 ML NEB INHALATION SCH ×6 (04:09→19:53)
[2019-03-26 06:54] LABS: HCT 41.3 % (34.0-46.0); MCH 30.2 pg (25.0-35.0); MCV 88.9 fL (80.0-100.0); Mean Platelet Volume 6.8; Platelet Count 195 k/uL (150-450); RBC 4.65 m/uL (3.80-5.40); RDW 13.1 % (11.5-15.5); WBC 18.2 k/uL (3.8-10.6)
[2019-03-26 07:03] LABS: Calcium 8.9 mg/dL (8.4-10.2); Potassium 3.8 mmol/L (3.5-5.1)
[2019-03-26] MEDS: SYMBICORT 160-4.5 MCG INHALER INHALATION SCH ×2 (07:25→19:53)
[2019-03-26] MEDS: amLODIPine 5 MG TAB PO SCH (08:35)
[2019-03-26] MEDS: CHOLECALCIFEROL 1,000 UNIT TAB PO SCH ×2 (08:35→19:35)
[2019-03-26] MEDS: methylPREDNISolone SOD SUCCI 40 MG/ML 1 ML VIAL IV SCH (08:36)
[2019-03-26] MEDS: CALCIUM CARBONATE 500 MG CHEWABLE PO SCH ×2 (08:36→19:34)
[2019-03-26] MEDS: ENOXAPARIN 40 MG/0.4 ML SYRINGE SQ SCH (08:36)
[2019-03-26] MEDS: POTASSIUM CHLORIDE ER 20 MEQ TAB.ER PO SCH (08:36)
[2019-03-26] MEDS: FLUCONAZOLE 100 MG TAB PO SCH (08:39)
[2019-03-26] MEDS: ANASTROZOLE 1 MG TAB PO SCH (08:39)
[2019-03-26 11:41] LABS: Glucose,Whole Blood 272 mg/dL (75-99)
[2019-03-26] MEDS: INSULIN ASPART (NovoLOG) 100 UNIT/ML VIAL SQ SCH ×3 (12:06→20:27)
[2019-03-26] MEDS: LACTATED RINGERS 1,000 ML IV SCH (12:11)
--- NOTE | 2019-03-26 13:35 | P.PN ---
Subjective Progress Note Date: 03/26/19 Principal diagnosis: Acute hypoxic respiratory failure secondary to an acute exacerbation of chronic obstructive pulmonary disease This is a very pleasant 78-year-old female patient who follows with Dr. Rivera as her primary care physician. She has a history of hyperlipidemia, hypertension, breast cancer, osteoporosis, anxiety, COPD. She has chronic and ongoing heavy tobacco dependence. She is maintained on Trelegy and Ventolin in the outpatient setting. She was admitted for increasing shortness of breath, cough congestion, dizziness. She had been treated with antibiotics and steroids and outpatient setting without much improvement. White count 12.6. Hemoglobin 15.4. Creatinine 0.88. Sodium 136. Potassium 3.4. ProBNP 1050. Troponin negative 1. She been initiated on DuoNeb inhalations, Symbicort, IV Solu- Medrol. Chest x-ray reveals evidence of chronic obstructive pulmonary disease but no acute pulmonary process. Computed tomography scan of the brain revealed no acute abnormalities. She is seen today in consultation in the observation unit. She is currently sitting up in bed. Awake and alert in no acute distress. She is maintaining O2 saturation in the low 90s on 2 L/m per nasal cannula. She's afebrile. Tachycardic. Dyspneic with minimal conversation. The patient is seen today 03/25/2019 in follow-up in the observation unit. She is awake and alert in no acute distress. Breathing a bit easier today compared to yesterday. Not quite back to her baseline. Maintaining O2 saturation on the low 90s on 2 L/m per nasal cannula. Afebrile. Slightly tachycardic. Slightly anxious. His been maintained on DuoNeb inhalations, Symbicort, IV Solu-Medrol. The patient is seen today 03/26/2019 in follow-up in the observation unit. She is awake and alert in no acute distress. Sitting up at the bedside. Improved today compared to yesterday. Feeling back to her baseline. Maintaining O2 saturations in the 90s on 4 L/m per nasal cannula. White count 18.2. Hemoglobin 14.0. Sodium 138. Potassium 3.8. Creatinine 0.82. Continued on DuoNeb inhalations, Symbicort, IV Solu-Medrol. Objective - Vital Signs Vital signs: Vital Signs Temp 98.8 F 03/26/19 07:05 Pulse 104 H 03/26/19 11:23 Resp 18 03/26/19 07:05 BP 154/79 03/26/19 08:37 Pulse Ox 96 03/26/19 08:37 Intake & Output 03/25/19 03/26/19 03/26/19 18:59 06:59 18:59 Intake Total 0 440 Balance 0 440 Weight 42.6 kg Intake: Oral 0 240 Other 200 Other: Voiding Method Toilet Toilet Toilet # Voids 2 1 - Exam GENERAL EXAM: Alert, active, pleasant 78-year-old female patient on 4 L nasal cannula, comfortable in no apparent distress. HEAD: Normocephalic. EYES: Normal reaction of pupils, equal size. NOSE: Clear with pink turbinates. THROAT: No erythema or exudates. NECK: No masses, no JVD. CHEST: No chest wall deformity. LUNGS: Equal air entry with faint end expiratory wheeze, diminished. CVS: S1 and S2 normal with no audible murmur, regular rhythm. ABDOMEN: No hepatosplenomegaly, normal bowel sounds, no guarding or rigidity. SPINE: No scoliosis or deformity SKIN: No rashes CENTRAL NERVOUS SYSTEM: No focal deficits, tone is normal in all 4 extremities. EXTREMITIES: There is no peripheral edema. No clubbing, no cyanosis. Peripheral pulses are intact. - Labs CBC & Chem 7: 03/26/19 06:38 03/26/19 06:38 Labs: Abnormal Lab Results - Last 24 Hours (Table) 03/26/19 03/26/19 03/26/19 Range/Units 06:38 06:38 11:39 WBC 18.2 H (3.8-10.6) k/uL Carbon Dioxide 34 H (22-30) mmol/L BUN 29 H (7-17) mg/dL Glucose 161 H (74-99) mg/dL POC Glucose (mg/dL) 272 H (75-99) mg/dL Assessment and Plan Assessment: 1 Acute hypoxic respiratory failure secondary to an acute exacerbation of chronic obstructive pulmonary disease, failed outpatient treatment 2 Dizziness of unclear etiology possibly due to hypoxemia 3 History of chronic tobacco dependence 4 Hypertension. 5 Hyperlipidemia. 6 History of breast cancer, left mastectomy 7 Anxiety 8 Osteoporosis. Plan: The patient was seen and evaluated by Dr. Loja. She is improved today compared to yesterday. She may qualify for home oxygen. She should complete prednisone burst and taper starting at 40 mg daily for 4 days. Continue albuterol and her Trelegy. She would benefit from a follow-up in our office for recurrent perform full pulmonary function testing to evaluate the severity of her COPD and make recommendations for her maintenance medications. She is again educated regarding the importance of complete smoking cessation. I, the cosigning physician, performed a history & physical examination of the patient. Lungs sounds with bilateral end expiratory wheeze, diminished. Maintaining good O2 saturations in the 90s on 4 L/m per nasal cannula. I discussed the assessment and plan of care with my nurse practitioner, Naheed Morrison. I attest to the above consultation as dictated by her.
[2019-03-26 15:28] LABS: ABG HCO3 32 mmol/L (21-25); ABG PCO2 38 mmHg (35-45); ABG PH 7.53 (7.35-7.45); ABG PO2 60 mmHg (83-108); ABG TCO2 33 mmol/L (19-24); Allen Test Performed? Yes
--- NOTE | 2019-03-26 16:41 | P.PN ---
Progress Note - Text Progress Note Date: 03/26/19 Chief Complaint: Lightheaded Interval history: This is a very pleasant 78-year-old patient of Dr. Agustin Rivera. Chronic stable medical conditions include hypertension, hyperlipidemia, anxiety. Patient's had a prior breast cancer with left mastectomy. Long-standing smoker. Quit 2 weeks patient's been feeling somewhat lightheaded off balance. Denies any change in vision. No headache. No change in speech. No focal weakness. Patient also short of breath cough decreased appetite some which is chronic. No fever no chills. Her lightheadedness is better at rest and worse if she gets up and does things. Patient has some chronic low back pain. Has continued to smoke. Admitted with acute COPD exacerbation and dehydration, oropharyngeal candidiasis Today-feels a bit better. Was ambulated in the hallway. Being extremely short of breath. Some cough is present. Eating some. Pulse ox 91% with ambulation. Review of systems: Was done for constitutional, cardiovascular, GI, pulmonary. relevant finding as above Active Medications Acetaminophen (Tylenol Tab) 650 mg PO Q6HR PRN PRN Reason: Fever and/ or Pain Last Admin: 03/26/19 03:30 Dose: 650 mg Documented by: Albuterol Sulfate (Ventolin Nebulized) 2.5 mg INHALATION RT-QID PRN PRN Reason: Shortness Of Breath Albuterol/Ipratropium (Duoneb 0.5 Mg-3 Mg/3 Ml Soln) 3 ml INHALATION RT-Q4H [facility] Last Admin: 03/26/19 15:51 Dose: 3 ml Documented by: Alprazolam (Xanax) 0.25 mg PO BID PRN PRN Reason: Anxiety Last Admin: 03/26/19 14:23 Dose: 0.25 mg Documented by: Amlodipine Besylate (Norvasc) 5 mg PO DAILY [facility] Last Admin: 03/26/19 08:35 Dose: 5 mg Documented by: Anastrozole (Arimidex) 1 mg PO DAILY [facility] Last Admin: 03/26/19 08:39 Dose: 1 mg Documented by: Budesonide/Formoterol Fumarate (Symbicort 160-4.5 Mcg Inhaler) 2 puff INHALATION RT-BID [facility] Last Admin: 03/26/19 07:25 Dose: 2 puff Documented by: Calcium Carbonate/Glycine (Tums) 500 mg PO BID [facility] Last Admin: 03/26/19 08:36 Dose: 500 mg Documented by: Cholecalciferol (Vitamin D3 (25 Mcg = 1000 Iu)) 1,000 unit PO BID [facility] Last Admin: 03/26/19 08:35 Dose: 1,000 unit Documented by: Enoxaparin Sodium (Lovenox) 40 mg SQ DAILY [facility] Last Admin: 03/26/19 08:36 Dose: 40 mg Documented by: Fluconazole (Diflucan) 100 mg PO DAILY [facility] Last Admin: 03/26/19 08:39 Dose: 100 mg Documented by: Lactated Ringer's (Lactated Ringers) 1,000 mls @ 100 mls/hr IV .Q10H [facility] Last Admin: 03/26/19 12:11 Dose: Not Given Documented by: Insulin Aspart (Novolog) 0 unit SQ [facility]; Protocol Last Admin: 03/26/19 12:06 Dose: 8 unit Documented by: Losartan Potassium (Cozaar) 50 mg PO [facility] Last Admin: 03/25/19 20:32 Dose: 50 mg Documented by: Multi-Ingred Cream/Lotion/Oil/Oint (Lubrifresh Pm Ointment) 1 applic BOTH EYES TID PRN PRN Reason: Dry Eye(s) Last Admin: 03/23/19 21:29 Dose: 1 applic Documented by: Potassium Chloride (K-Dur 10) 10 meq PO [facility] Last Admin: 03/25/19 20:32 Dose: 10 meq Documented by: Potassium Chloride (K-Dur 20) 20 meq PO DAILY [facility] Last Admin: 03/26/19 08:36 Dose: 20 meq Documented by: Pravastatin Sodium (Pravachol) 40 mg PO [facility] Last Admin: 03/25/19 20:32 Dose: 40 mg Documented by: Prednisone () 40 mg PO DAILY [facility] Physical examination: VITAL SIGNS: 98.8, 18, 146/74, 91% on room air GENERAL: Sitting of the edge of the bed, short of breath., Though looking better EYES: Pupils equal. Conjunctiva normal. HEENT: External appearance of nose and ears normal, oral cavity-white spot in the pharynx. NECK: JVD not raised; masses not palpable. HEART: First and second heart sounds are normal; no edema. LUNGS: Respiratory rate increased, diminished breath sound, prolonged expiration ABDOMEN: Soft, nontender, liver spleen not palpable, no masses palpable. PSYCH: [Alert and oriented x3; mood and affect slightly anxious. MUSCULOSKELETAL-loss of muscle mass and subcutaneous fat INVESTIGATIONS, reviewed in the clinical context: ABG on room air-pH 7.53 po2-60 oxygen saturation 93% White count 12.6 hemoglobin 15.4 progression 3.4 bun 22 creatinine 0.88 Troponin I less than 0.012 EKG tracing personally reviewed by me-normal sinus rhythm. Peaked P waves in lead [address]-negative Chest x-ray film personally reviewed by me-hyperinflation, prominent pulmonary arteries Assessment: -dehydration given some elevation of BUN. -Acute advanced COPD exacerbation with current smoker, slow to respond -Chronic nicotine dependence patient cigarette smoker -Essential hypertension -Hyperlipidemia -Oropharyngeal candidiasis -Severe protein calorie malnutrition from chronically decreased oral intake -Respiratory alkalosis from hyperventilation Plan: Patient went Back to oral prednisone. Told patient increased ambition. Had a lengthy talk with patient's family the room. Looking at going home tomorrow.
[2019-03-26 16:47] LABS: Glucose,Whole Blood 78 mg/dL (75-99)
[2019-03-26] MEDS: POTASSIUM CHLORIDE ER 10 MEQ TAB.ER.PRT PO SCH (19:34)
[2019-03-26] MEDS: PRAVASTATIN SODIUM 40 MG TAB PO SCH (19:34)
[2019-03-26] MEDS: LOSARTAN 50 MG TAB PO SCH (19:34)
[2019-03-26 20:23] LABS: Glucose,Whole Blood 198 mg/dL (75-99)
[2019-03-27] MEDS: IPRATROPIUM-ALBUTEROL 3 ML NEB INHALATION SCH ×4 (00:53→11:17)
[2019-03-27 07:13] LABS: Glucose,Whole Blood 109 mg/dL (75-99)
[2019-03-27] MEDS: INSULIN ASPART (NovoLOG) 100 UNIT/ML VIAL SQ SCH (07:21)
[2019-03-27] MEDS: CHOLECALCIFEROL 1,000 UNIT TAB PO SCH (07:32)
[2019-03-27] MEDS: ENOXAPARIN 40 MG/0.4 ML SYRINGE SQ SCH (07:33)
[2019-03-27] MEDS: POTASSIUM CHLORIDE ER 20 MEQ TAB.ER PO SCH (07:33)
[2019-03-27] MEDS: CALCIUM CARBONATE 500 MG CHEWABLE PO SCH (07:33)
[2019-03-27] MEDS: amLODIPine 5 MG TAB PO SCH (07:33)
[2019-03-27] MEDS: FLUCONAZOLE 100 MG TAB PO SCH (07:33)
[2019-03-27 07:34] VITALS: TEMP 97.8
[2019-03-27] MEDS: ANASTROZOLE 1 MG TAB PO SCH (07:34)
[2019-03-27] MEDS: SYMBICORT 160-4.5 MCG INHALER INHALATION SCH (08:00)
[2019-03-27] MEDS ORDERED: predniSONE 20 MG TAB PO SCH (09:00)
[2019-03-27 11:47] VITALS: BP 145/77; PULSE 74
--- NOTE | 2019-03-27 11:51 | P.PN ---
Subjective Progress Note Date: 03/27/19 Principal diagnosis: Acute hypoxic respiratory failure secondary to an acute exacerbation of chronic obstructive pulmonary disease This is a very pleasant 78-year-old female patient who follows with Dr. Rivera as her primary care physician. She has a history of hyperlipidemia, hypertension, breast cancer, osteoporosis, anxiety, COPD. She has chronic and ongoing heavy tobacco dependence. She is maintained on Trelegy and Ventolin in the outpatient setting. She was admitted for increasing shortness of breath, cough congestion, dizziness. She had been treated with antibiotics and steroids and outpatient setting without much improvement. White count 12.6. Hemoglobin 15.4. Creatinine 0.88. Sodium 136. Potassium 3.4. ProBNP 1050. Troponin negative 1. She been initiated on DuoNeb inhalations, Symbicort, IV Solu- Medrol. Chest x-ray reveals evidence of chronic obstructive pulmonary disease but no acute pulmonary process. Computed tomography scan of the brain revealed no acute abnormalities. She is seen today in consultation in the observation unit. She is currently sitting up in bed. Awake and alert in no acute distress. She is maintaining O2 saturation in the low 90s on 2 L/m per nasal cannula. She's afebrile. Tachycardic. Dyspneic with minimal conversation. The patient is seen today 03/25/2019 in follow-up in the observation unit. She is awake and alert in no acute distress. Breathing a bit easier today compared to yesterday. Not quite back to her baseline. Maintaining O2 saturation on the low 90s on 2 L/m per nasal cannula. Afebrile. Slightly tachycardic. Slightly anxious. His been maintained on DuoNeb inhalations, Symbicort, IV Solu-Medrol. The patient is seen today 03/26/2019 in follow-up in the observation unit. She is awake and alert in no acute distress. Sitting up at the bedside. Improved today compared to yesterday. Feeling back to her baseline. Maintaining O2 saturations in the 90s on 4 L/m per nasal cannula. White count 18.2. Hemoglobin 14.0. Sodium 138. Potassium 3.8. Creatinine 0.82. Continued on DuoNeb inhalations, Symbicort, IV Solu-Medrol. The patient is seen today 03/27/2019 in follow-up on the regular medical floor. She is currently resting comfortably in bed. Awake and alert in no acute distress. Maintaining O2 saturations in the upper 90s on room air. She's afebrile. She has had issues with anxiety but is feeling well today. Hoping to go home. Objective - Vital Signs Vital signs: Vital Signs Temp 97.8 F 03/27/19 11:46 Pulse 74 03/27/19 11:46 Resp 18 03/27/19 11:46 BP 145/77 03/27/19 11:46 Pulse Ox 97 03/27/19 11:46 Intake & Output 03/26/19 03/27/19 03/27/19 18:59 06:59 18:59 Intake Total 440 Balance 440 Intake: Oral 240 Other 200 Other: Voiding Method Toilet Toilet Toilet # Voids 1 - Exam GENERAL EXAM: Alert, pleasant frail, cachectic 78-year-old female patient on room air, comfortable in no apparent distress. HEAD: Normocephalic. EYES: Normal reaction of pupils, equal size. NOSE: Clear with pink turbinates. THROAT: No erythema or exudates. NECK: No masses, no JVD. CHEST: No chest wall deformity. LUNGS: Equal air entry with faint end expiratory wheeze, diminished. CVS: S1 and S2 normal with no audible murmur, regular rhythm. ABDOMEN: No hepatosplenomegaly, normal bowel sounds, no guarding or rigidity. SPINE: No scoliosis or deformity SKIN: No rashes CENTRAL NERVOUS SYSTEM: No focal deficits, tone is normal in all 4 extremities. EXTREMITIES: There is no peripheral edema. No clubbing, no cyanosis. Peripheral pulses are intact. - Labs CBC & Chem 7: 03/26/19 06:38 03/26/19 06:38 Labs: Abnormal Lab Results - Last 24 Hours (Table) 03/26/19 03/26/19 03/27/19 Range/Units 15:22 20:19 07:11 ABG pH 7.53 H (7.35-7.45) ABG pO2 60 L (83-108) mmHg ABG HCO3 32 H (21-25) mmol/L ABG Total CO2 33 H (19-24) mmol/L ABG O2 Saturation 93.0 L (94-97) % POC Glucose (mg/dL) 198 H 109 H (75-99) mg/dL Assessment and Plan Assessment: 1 Acute hypoxic respiratory failure secondary to an acute exacerbation of chronic obstructive pulmonary disease, failed outpatient treatment 2 Dizziness of unclear etiology possibly due to hypoxemia 3 History of chronic tobacco dependence 4 Hypertension. 5 Hyperlipidemia. 6 History of breast cancer, left mastectomy 7 Anxiety 8 Osteoporosis. Plan: The patient was seen and evaluated by Dr. Loja. She is cleared for discharge from the pulmonary standpoint. She should complete prednisone burst and taper starting at 40 mg daily for 4 days. Continue albuterol and her Trelegy. She would benefit from a follow-up in our office for recurrent perform full pulmonary function testing to evaluate the severity of her COPD and make recommendations for her maintenance medications. She is again educated regarding the importance of complete smoking cessation. I, the cosigning physician, performed a history & physical examination of the patient. Lungs sounds with bilateral end expiratory wheeze, diminished. Maintaining good O2 saturations in the 90s on room air. I discussed the assessment and plan of care with my nurse practitioner, Naheed Morrison. I attest to the above consultation as dictated by her.
--- NOTE | 2019-03-30 18:21 | P.DS ---
Providers Date of admission: 03/25/19 09:37 Expected date of discharge: 03/27/19 Attending physician: Yung Lowry Consults: 03/23/19 15:42 Consult Physician Routine Consulting Provider: Fatimah Mendoza Consult Reason/Comments: COPD exacerbation Do you want consulting provider notified?: Yes Primary care physician: Agustin Rivera [facility] Course: Chief Complaint: Lightheaded Hospital course: This is a very pleasant 78-year-old patient of Dr. Agustin Rivera. Chronic stable medical conditions include hypertension, hyperlipidemia, anxiety. Patient's had a prior breast cancer with left mastectomy. Long-standing smoker. Quit 2 weeks ago. patient's been feeling somewhat lightheaded off balance. Denies any change in vision. No headache. No change in speech. No focal weakness. Patient also short of breath cough decreased appetite some which is chronic. No fever no chills. Her lightheadedness is better at rest and worse if she gets up and does things. Patient has some chronic low back pain. Has continued to smoke. Admitted with acute COPD exacerbation and dehydration, oropharyngeal candidiasis. Malnutrition. Treated with nebulized bronchodilators, steroids, Diflucan. And IV fluids. Responded well. Diet discussed Today-Much improved.. Has good family support. Anxious to go home. Pulse oxing 91% on room air. No sputum production. Care was discussed in length. Discussion and discharge planning more than 35 minutes Consultation: Dr. Loja from pulmonary Physical examination: VITAL SIGNS: 97.8, 74, 18, 145/77, 97% on room air GENERAL: Sitting of the edge of the bed, breathing improved EYES: Pupils equal. Conjunctiva normal. HEENT: External appearance of nose and ears normal, oral cavity-white spot in the pharynx. NECK: JVD not raised; masses not palpable. HEART: First and second heart sounds are normal; no edema. LUNGS: Respiratory rate increased, diminished breath sound, ABDOMEN: Soft, nontender, liver spleen not palpable, no masses palpable. PSYCH: [Alert and oriented x3; mood and affect slightly anxious. MUSCULOSKELETAL-loss of muscle mass and subcutaneous fat INVESTIGATIONS, reviewed in the clinical context: ABG on room air-pH 7.53 po2-60 oxygen saturation 93% White count 12.6 hemoglobin 15.4 progression 3.4 bun 22 creatinine 0.88 Troponin I less than 0.012 EKG tracing personally reviewed by me-normal sinus rhythm. Peaked P waves in lead [address]-negative Chest x-ray film personally reviewed by me-hyperinflation, prominent pulmonary arteries Assessment: -dehydration given some elevation of BUN. -Acute advanced COPD exacerbation with current smoker, POA -Chronic nicotine dependence patient cigarette smoker -Essential hypertension -Hyperlipidemia -Oropharyngeal candidiasis, POA -Severe protein calorie malnutrition from chronically decreased oral intake -Respiratory alkalosis from hyperventilation Disposition: Home Plan - Discharge Summary Discharge Rx Participant: No New Discharge Prescriptions: New Fluconazole [Diflucan] 100 mg PO DAILY #10 tab Ipratropium-Albuterol Nebulize [Duoneb 0.5 mg-3 mg/3 ml Soln] 3 ml INHALATION Q6H #120 ampul.neb Artificial Tears Ointment [Lubrifresh Pm Ointment] 1 applic BOTH EYES TID PRN applic PRN Reason: Dry Eye(S) predniSONE 10 mg PO DAILY #30 tab Continue Albuterol Inhaler [Ventolin Hfa Inhaler] 2 puff INHALATION RT-QID PRN PRN Reason: Shortness Of Breath Pravastatin Sodium [Pravachol] 40 mg PO HS Cholecalciferol [Vitamin D3 (25 Mcg = 1000 Iu)] 1,000 unit PO BID Anastrozole [Arimidex] 1 mg PO DAILY ALPRAZolam [Xanax] 0.125 - 0.25 mg PO BID PRN PRN Reason: Anxiety Losartan Potassium [Cozaar] 50 mg PO HS Calcium Carbonate [Calcium] 600 mg PO BID Albuterol Nebulized [Ventolin Nebulized] 2.5 mg INHALATION RT-QID PRN PRN Reason: Shortness Of Breath amLODIPine [Norvasc] 5 mg PO DAILY Denosumab [Prolia] 60 mg SQ Q180D Fluticasone/Umeclidin/Vilanter [Trelegy Ellipta 100-62.5-25] 1 puff INHALATION RT-DAILY Potassium Chloride ER [K-Dur 20] 20 meq PO DAILY Potassium Chloride ER [K-Dur 20] 10 meq PO HS Discontinued predniSONE See Taper PO DAILY Discharge Medication List ALPRAZolam [Xanax] 0.125 - 0.25 mg PO BID PRN 04/02/16 [History] Albuterol Inhaler [Ventolin Hfa Inhaler] 2 puff INHALATION RT-QID PRN 04/02/16 [History] Albuterol Nebulized [Ventolin Nebulized] 2.5 mg INHALATION RT-QID PRN 04/02/16 [History] Anastrozole [Arimidex] 1 mg PO DAILY 04/02/16 [History] Calcium Carbonate [Calcium] 600 mg PO BID 04/02/16 [History] Cholecalciferol [Vitamin D3 (25 Mcg = 1000 Iu)] 1,000 unit PO BID 04/02/16 [His tory] Losartan Potassium [Cozaar] 50 mg PO HS 04/02/16 [History] Pravastatin Sodium [Pravachol] 40 mg PO HS 04/02/16 [History] Denosumab [Prolia] 60 mg SQ Q180D 03/23/19 [History] Fluticasone/Umeclidin/Vilanter [Trelegy Ellipta 100-62.5-25] 1 puff INHALATION RT-DAILY 03/23/19 [History] Potassium Chloride ER [K-Dur 20] 10 meq PO HS 03/23/19 [History] Potassium Chloride ER [K-Dur 20] 20 meq PO DAILY 03/23/19 [History] amLODIPine [Norvasc] 5 mg PO DAILY 03/23/19 [History] Artificial Tears Ointment [Lubrifresh Pm Ointment] 1 applic BOTH EYES TID PRN applic 03/27/19 [Rx] Fluconazole [Diflucan] 100 mg PO DAILY #10 tab 03/27/19 [Rx] Ipratropium-Albuterol Nebulize [Duoneb 0.5 mg-3 mg/3 ml Soln] 3 ml INHALATION Q6H #120 ampul.neb 03/27/19 [Rx] predniSONE 10 mg PO DAILY #30 tab 03/27/19 [Rx] Follow up Appointment(s)/Referral(s): [facility] [NON-STAFF] - As Needed Agustin Rivera MD [Primary Care Provider] - 03/28/19 1:30 pm Augie Loja DO [Doctor of Osteopathic Medicine] - 04/06/19 8:30 am [facility]iting Nurse, [NON-STAFF] - 1-2 Days Patient Instructions/Handouts: Prednisone (By mouth), Fluconazole (By mouth), Ipratropium/Albuterol (By breathing), COPD (Chronic Obstructive Pulmonary Disease) (GEN) Activity/Diet/Wound Care/Special Instructions: bmp-3 days Discharge Disposition: HOME SELF-CARE
== END 2019-03-27 13:40 | disposition home health service (06) | DRG 190 ==
LOC: EC 13:37 → 1SOBS 15:42 → OBSVTOIN 03-25 09:37 → 5NMEDONC 03-27 08:20
PROVIDERS: ADMIT Hospitalist; ATTEND Hospitalist
DX: J44.1 Chronic obstructive pulmonary disease with (acute) exacerbation (principal); E43 Unspecified severe protein-calorie malnutrition; J96.01 Acute respiratory failure with hypoxia; Z68.1 Body mass index [BMI] 19.9 or less, adult; E87.3 Alkalosis; B37.89 Other sites of candidiasis; E86.0 Dehydration; E78.5 Hyperlipidemia, unspecified; F17.210 Nicotine dependence, cigarettes, uncomplicated; F41.9 Anxiety disorder, unspecified; G89.29 Other chronic pain; M81.0 Age-related osteoporosis without current pathological fracture; I10 Essential (primary) hypertension; Z79.811 Long term (current) use of aromatase inhibitors; Z79.899 Other long term (current) drug therapy; Z85.3 Personal history of malignant neoplasm of breast; Z90.12 Acquired absence of left breast and nipple; Z88.0 Allergy status to penicillin; Z91.018 Allergy to other foods
CPT/HCPCS: 36415; 36600; 70450; 71046; 80048; 80053; 82805; 83735; 83880; 84484; 85025; 85027; 85610; 85730; 93005; 94640; 94760; 96374; 99285

== ENCOUNTER → 2019-05-07 | Outpatient (CLI) | payer MEDICARE, BC ==
[~2019-05-07] MED LIST changes: +DENOSUMAB 60 MG/ML 1 ML SYRINGE SQ NR; -DENOSUMAB 60 MG/ML 1 ML SYRINGE SQ ONE
[2019-05-07 11:25] VITALS: BP 160/74; PULSE 72; RESP 20; TEMP 97.6
== END | disposition home or self-care (01) ==
LOC: PROCWHC3 11:07
PROVIDERS: ATTEND Nurse Practitioner Adult Health
DX: M81.0 Age-related osteoporosis without current pathological fracture (principal)
CPT/HCPCS: 96372; J0897

== ENCOUNTER → 2019-11-13 | Outpatient (CLI) | payer MEDICARE, BC ==
[~2019-11-13] MED LIST changes: -DENOSUMAB 60 MG/ML 1 ML SYRINGE SQ NR; +DENOSUMAB 60 MG/ML 1 ML SYRINGE SQ ONE
[2019-11-13 14:08] VITALS: BP 149/63; PULSE 61; RESP 16; TEMP 97.6
== END | disposition home or self-care (01) ==
LOC: PROCWHC3 13:47
PROVIDERS: ATTEND Nurse Practitioner Adult Health
DX: M81.0 Age-related osteoporosis without current pathological fracture (principal)
CPT/HCPCS: 96372; J0897

== ENCOUNTER → 2020-05-14 | Outpatient (CLI) | payer MEDICARE, BC ==
[~2020-05-14] MED LIST changes: +DENOSUMAB 60 MG/ML 1 ML SYRINGE SQ NR; -DENOSUMAB 60 MG/ML 1 ML SYRINGE SQ ONE
[2020-05-14 11:48] VITALS: BP 154/63; PULSE 96; RESP 16; TEMP 98.1
== END | disposition home or self-care (01) ==
LOC: PROCWHC3 11:31
PROVIDERS: ATTEND Nurse Practitioner Adult Health
DX: M81.0 Age-related osteoporosis without current pathological fracture (principal)
CPT/HCPCS: 96372; J0897

== ENCOUNTER → 2020-09-08 | Outpatient (CLI) | payer MEDICARE, BC ==
--- NOTE | 2020-09-11 11:18 | MM ---
Reason for exam: screening (asymptomatic). Last mammogram was performed 1 year ago. History: Patient is postmenopausal and has history of breast cancer at age 68. Mastectomy of the left breast, 2009. Chemotherapy, 2009. Radiation therapy of the left breast, 2009. Physical Findings: A clinical breast exam by your physician is recommended on an annual basis and results should be correlated with mammographic findings. MG 3D Screening Mammo W/Cad CC and MLO view(s) were taken of the right breast. Prior study comparison: September 20, 2019, right breast mammogram, performed at [facility]. September 11, 2018, right breast mammogram, performed at [facility]. September 09, 2017, right breast mammogram, performed at [facility]. The breast tissue is heterogeneously dense. This may lower the sensitivity of mammography. Finding: There are typically benign vascular, round, linear calcifications in the right breast. There is no discrete abnormality. ASSESSMENT: Benign, BI-RAD 2 RECOMMENDATION: Routine screening mammogram of the right breast in 1 year.
== END | disposition home or self-care (01) ==
LOC: RADMAMWWP 11:14
PROVIDERS: ATTEND Internal Medicine Medical Oncology
DX: Z12.31 Encounter for screening mammogram for malignant neoplasm of breast (principal); C50.019 Malignant neoplasm of nipple and areola, unspecified female breast
CPT/HCPCS: 77063; 77067

== ENCOUNTER → 2020-12-03 | Outpatient (CLI) | payer MEDICARE, BC ==
[2020-12-03 11:10] VITALS: BP 156/80; PULSE 90; RESP 16; TEMP 98.4
== END | disposition home or self-care (01) ==
LOC: PROCWHC3 10:39
PROVIDERS: ATTEND Family Medicine
DX: M81.0 Age-related osteoporosis without current pathological fracture (principal)
CPT/HCPCS: 96372; J0897

== ENCOUNTER 2021-07-22 13:11 | Emergency (ER) | payer MEDICARE, BC ==
[2021-07-22 13:38] VITALS: BP 145/72; PULSE 87; RESP 18; TEMP 97.4
--- NOTE | 2021-07-22 15:36 | XR ---
EXAMINATION TYPE: XR shoulder complete RT DATE OF EXAM: 07/22/2021 CLINICAL HISTORY: Fall injury with pain TECHNIQUE: Three views of the right shoulder are obtained. COMPARISON: None. FINDINGS: [place] osseous structures are demineralized. There is no acute fracture/dislocation eviden t in the right shoulder. Moderate narrowing at the acromioclavicular joint. Distal acromion morpholo gy unremarkable. Glenohumeral joint is preserved. The visualized ribs are intact. Mild vascular calci fication in the right axilla is present. IMPRESSION: There is no acute fracture or dislocation in the right shoulder.
[2021-07-22] MEDS ORDERED: DIPH,PERTUS(ACELL)TETVAC-LF 0.5 ML VIAL IM ONE (18:12)
[2021-07-22] MEDS ORDERED: LIDOCAINE/EPINEPHR/TETRACAINE 5 ML BOTTLE TOPICAL ONE (18:19)
[2021-07-22] MEDS ORDERED: LIDOCAINE 1% INJ 10MG/ML (5 ML VIAL-PF) SQ ONE (18:19)
--- NOTE | 2021-07-22 19:28 | CT ---
EXAM: CT brain wo con, CT facial bones wo con CLINICAL HISTORY: Pain/injury. COMPARISON: 03/23/2019 TECHNIQUE: 1. Contiguous axial noncontrast images of the brain was obtained. Imaging dose reduction techniques w ere utilized per protocol. 2. Axial CT images of the facial bones was obtained without contrast. Sagittal and coronal reformats were generated and reviewed. Dose reduction techniques were utilized per protocol. FINDINGS: Head: There is no evidence for intracranial hemorrhage, mass effect, midline shift or acute large vessel te rritory infarct. There is mild white matter disease and parenchymal volume loss. Ventricular size and configuration is within normal limits for degree of parenchymal volume. The paranasal sinuses are clear. The mastoid air cells are clear. No evidence for calvarial fracture. Maxillofacial: There is no acute fracture or dislocation. The pterygoid plates, zygomatic arches, maxilla and mandib le are intact. The paranasal sinuses and mastoid air cells are adequately aerated. There is no significant soft tissue abnormality. IMPRESSION: No acute intracranial or facial bones abnormality.
[2021-07-22] MEDS ORDERED: ACETAMINOPHEN TAB 500 MG TAB PO STA (19:43)
--- NOTE | 2021-07-22 20:39 | ED ---
Fall HPI - General Source: patient, family Mode of arrival: wheelchair <BriceBebeto - Last Filed: 07/22/21 20:38> <Charly Kimble - Last Filed: 07/22/21 22:53> - General Chief Complaint: Fall Stated Complaint: fall, head injury Time Seen by Provider: 07/22/21 17:55 - History of Present Illness Initial Comments: Patient is a 81-year-old female who presents emergency Department following a fall at home. She is not on blood thinners. States that last night she was walking to the bathroom in the dark and tripped over something. She struck her head she thinks on a bedside table or other piece of furniture. Was bleeding from that site. Believes this is that partially 5 AM. It is mid afternoon at this time. Has a past medical history remarkable for cancer, COPD, hypertension. Is not on blood thinners. Condition of the forehead laceration, patient does have a right shoulder pain was normal range of motion. Denies loss of consciousness. Endorses pain around her left eye. Denies any blurry vision or difficulty with vision. Denies any eye pain. His no other acute complaints at this time. Denies back pain, chest pain, shortness breath, abdominal pain, nausea, vomiting. Was brought by family members for further evaluation.Patient denies loss consciousness. Denies simple episode. Was a mechanical fall, she lost her balance after tripping. (Charly Kimble) - Related Data Home Medications Medication Instructions Recorded Confirmed ALPRAZolam [Xanax] 0.125 - 0.25 mg PO BID PRN 04/02/16 12/03/20 Albuterol Inhaler (Mhu) [Ventolin 2 puff INHALATION RT-QID PRN 04/02/16 12/03/20 Hfa Inhaler (Mhu)] Albuterol Nebulized [Ventolin 2.5 mg INHALATION RT-QID PRN 04/02/16 12/03/20 Nebulized] Anastrozole [Arimidex] 1 mg PO DAILY 04/02/16 12/03/20 Calcium Carbonate [Calcium] 500 mg PO BID 04/02/16 12/03/20 Cholecalciferol [Vitamin D3 (25 1,000 unit PO BID 04/02/16 12/03/20 Mcg = 1000 Iu)] Losartan Potassium [Cozaar] 50 mg PO HS 04/02/16 12/03/20 Pravastatin Sodium [Pravachol] 40 mg PO HS 04/02/16 12/03/20 Denosumab [Prolia] 60 mg SQ Q180D 03/23/19 12/03/20 Fluticasone/Umeclidin/Vilanter 1 puff INHALATION RT-DAILY 03/23/19 12/03/20 [Trelegy Ellipta 100-62.5-25] Potassium Chloride ER [K-Dur 20] 20 meq PO DAILY 03/23/19 12/03/20 amLODIPine [Norvasc] 5 mg PO DAILY 03/23/19 12/03/20 Fluticasone/Umeclidin/Vilanter 1 inhalation INHALATION DAILY 05/07/19 12/03/20 [Trelegy Ellipta 100-62.5-25] Previous Rx's Medication Instructions Recorded Artificial Tears Ointment 1 applic BOTH EYES TID PRN applic 03/27/19 [Lubrifresh Pm Ointment] Ipratropium-Albuterol Nebulize 3 ml INHALATION Q6H #120 ampul.neb 03/27/19 [Duoneb 0.5 mg-3 mg/3 ml Soln] Allergies Allergy/AdvReac Type Severity Reaction Status Date / Time Penicillins Allergy Rash/Hives Verified 07/22/21 13:35 brazil nuts Allergy Anaphylaxis Uncoded 07/22/21 13:35 Review of Systems ROS Other: All systems not noted in ROS Statement are negative. <Bebeto Narvaez - Last Filed: 07/22/21 20:38> ROS Other: All systems not noted in ROS Statement are negative. <Charly Kimble - Last Filed: 07/22/21 22:53> ROS Statement: Those systems with pertinent positive or pertinent negative responses have been documented in the HPI. Review of Systems: CONST: Denies fever EYES: Denies blurry vision ENT: Denies nasal congestion C/V: Denies Chest pain RESP: Denies shortness of breath GI: Denies abdominal pain : Denies dysuria SKIN: Endorses laceration to forehead MSK: Endorses right shoulder pain NEURO: Denies headache (Charly Kimble) Past Medical History Past Medical History: Cancer, COPD, Hyperlipidemia, Hypertension, Renal Disease Additional Past Medical History / Comment(s): hx: breast cancer. KIDNEY AND LIVER CYST. OSTEOPOROSIS. History of Any Multi-Drug Resistant Organisms: None Reported Past Surgical History: Breast Surgery Additional Past Surgical History / Comment(s): lt mastectomy Past Anesthesia/Blood Transfusion Reactions: No Reported Reaction Past Psychological History: Anxiety Smoking Status: Former smoker Past Alcohol Use History: None Reported Past Drug Use History: None Reported - Past Family History Mother Family Medical History: Cancer Brother(s) Family Medical History: Cancer <Bebeto Narvaez - Last Filed: 07/22/21 20:38> General Exam Limitations: no limitations <Bebeto Narvaez - Last Filed: 07/22/21 20:38> <Charly Kimble - Last Filed: 07/22/21 22:53> - General Exam Comments Initial Comments: General: Appears in no acute distress. HEAD: Laceration to the left forehead..Left orbital rim tenderness palpation over the lateral aspect. EYES: PERRLA, EOMI, conjunctiva normal, no discharge. Pupils are 3 mm equal bilaterally. Full range of motion. ENT: Hearing grossly intact, normal oropharynx. RESPIRATORY: Clear breath sounds bilaterally. No wheezes, rales, or rhonchi. C/V: Regular rate and rhythm. S1 and S2 auscultated, no edema, peripheral pulses 2+ and intact throughout ABD: Abd is soft, nontender, nondistended EXT: Normal range of motion, no obvious deformity. Some mild tenderness to palpation over the right shoulder ac joint. Normal range of motion. No cerv ical, thoracic, lumbar spine tenderness to palpation. Pelvis is stable. SKIN: 3 cm linear laceration located over the left forehead. NEURO: Alert and oriented x 4. Cranial nerves II-XII intact. No focal sensory or strength deficits. GCS of 15. (Charly Kimble) Course Vital Signs 07/22/21 13:31 Temperature 97.4 F L Pulse Rate 87 Respiratory 18 Rate Blood Pressure 145/72 O2 Sat by Pulse 97 Oximetry Procedures - Laceration Laceration #1 Consent Obtained: verbal consent Indication: laceration Site: face Size (cm): 3 Description: linear Depth: simple, single layer Anesthetic Used: lidocaine 1% Anesthesia Technique: local infiltration (with LET) Pre-repair: irrigated extensively Type of Sutures: nylon Size of Sutures: 5-0 Number of Sutures: 4 Technique: simple, interrupted Patient Tolerated Procedure: well, no complications <cathleenBebeto - Last Filed: 07/22/21 20:38> Medical Decision Making <Charly Kimble - Last Filed: 07/22/21 22:53> - Medical Decision Making Based on the patient's presentation and physical exam, I'm concerned for laceration that requires sutures. Right shoulder x-ray was already obtained while the patient was in triage and showed no acute process. I did recommend facial CT imaging and she does have some tenderness to palpation of the orbital rim. She was in agreement with this plan. We also obtain a CT brain due to her age and blunt trauma. She'll require sutures which will be completed by a mid- level provider. Please see the additional note. CT brain and face revealed no fractures and no intracranial process. Patient will be given a tetanus booster as well as Tylenol. Patient tolerated sutures well. She'll be discharged home at this time. I updated the patient and family on the results and laboratory agreement this plan. I instructed the patient to follow up with their PCP in the next 3 days. I explained that the patient should return to the emergency department if they experience any worsening symptoms. Strict return precautions were discussed with the patient. The patient expressed understanding of these instructions. I answered all questions that the patient had. The patient was discharged home in good condition with their prescriptions and follow up information. (Charly Kimble) Disposition <BriceBebeto - Last Filed: 07/22/21 20:38> Is patient prescribed a controlled substance at d/c from ED?: No Time of Disposition: 20:45 <Charly Kimble - Last Filed: 07/22/21 22:53> Clinical Impression: Fall, Laceration Disposition: HOME SELF-CARE Condition: Good Instructions (If sedation given, give patient instructions): Fall Prevention for Older Adults (ED) Referrals: Agustin Rivera MD [Primary Care Provider] - 1-2 days
== END 2021-07-22 21:45 | disposition home or self-care (01) ==
LOC: EC 13:11
DX: S01.81XA Laceration without foreign body of other part of head, initial encounter (principal); M25.511 Pain in right shoulder; I10 Essential (primary) hypertension; J44.9 Chronic obstructive pulmonary disease, unspecified; E78.5 Hyperlipidemia, unspecified; Z87.891 Personal history of nicotine dependence; Z91.018 Allergy to other foods; Z88.0 Allergy status to penicillin; Z79.899 Other long term (current) drug therapy; Z23 Encounter for immunization; Z79.51 Long term (current) use of inhaled steroids; W01.190A Fall on same level from slipping, tripping and stumbling with subsequent striking against furniture, initial encounter
CPT/HCPCS: 73030; 70486; 70450; 90715; 99284; 90471; 12013; J2001

== ENCOUNTER → 2021-11-04 | Outpatient (CLI) | payer MEDICARE, BC ==
[2021-11-04 13:14] LABS: Creatinine,Urine Random 88.6 mg/dL; Protein/Creatinine Ratio,Urine 0.226
[2021-11-04 19:23] LABS: Basophils # (A) 0.06 X 10*3/uL (0.00-0.10); Basophils % (A) 0.7 %; Eosinophils # (A) 0.03 X 10*3/uL (0.04-0.35); Eosinophils % (A) 0.3 %; HGB 13.2 g/dL (12.0-15.0); Immature Grans, Automated 0.9 %; Lymphocytes % (A) 12.6 %; MCH 28.6 pg (27.0-32.0); MCHC 32.2 g/dL (32.0-37.0); MCV 88.7 fL (80.0-97.0); Mean Platelet Volume 10.1 fL (9.5-12.2); Monocytes # (A) 0.63 X 10*3/uL (0.20-1.00); Monocytes % (A) 7.2 %; NRBC Per 100 WBC 0 /100 WBCS (0.0-0.0); Neutrophils # (A) 6.81 X 10*3/uL (1.80-7.70); Neutrophils % (A) 78.3 %; Platelet Count 206 X 10*3/uL (140-440); RBC 4.62 X 10*6/uL (4.10-5.20); RDW 14.1 % (11.5-14.5); WBC 8.71 X 10*3/uL (4.50-10.00)
[2021-11-04 19:57] LABS: % Iron Saturation 14.77 (12.00-45.00); Albumin 4.2 g/dL (3.8-4.9); Albumin/Globulin Ratio 1.67 (1.60-3.17); BUN/Creat Ratio 18.81 Ratio (12.00-20.00); Blood Urea Nitrogen 26.9 mg/dL (9.0-27.0); Calcium 9.9 mg/dL (8.7-10.3); Carbon Dioxide 24.3 mmol/L (20.0-27.5); Globulin 2.5 g/dL (1.6-3.3); Non-African American GFR(CKD) 34.5 (60.0-200.0); Potassium 4.2 mmol/L (3.5-5.5); Total Bilirubin 0.4 mg/dL (0.30-1.20); Total Protein 6.8 g/dL (6.2-8.2); Uric Acid 5.7 mg/dL (2.9-7.7)
[2021-11-05 00:12] LABS: Magnesium 2.1 mg/dL (1.5-2.4); Phosphorus 3.5 mg/dL (2.4-5.1)
[2021-11-05 02:35] LABS: Cancer Antigen 153 24.8 U/mL (0.0-32.3)
--- NOTE | 2021-11-05 15:36 | MM ---
Reason for Exam: Screening (asymptomatic). Last mammogram was performed 1 year(s) and 1 month(s) ago. Patient History: Menarche at age 14. First Full-Term at age 20. Postmenopausal. Patient has history of breast feeding. Breast cancer, left, age 68. 2009, Mastectomy on the Left side. 2008, Chemotherapy. 2008, Radiation Therapy on the left side. Prior Study Comparison: 09/11/2018 Right Screening Mammogram, [facility]. 09/20/2019 Right Screening Mammogram, [facility]. 09/08/2020 Bilateral Screening Mammogram, [facility]. Tissue Density: Right: The breast tissue is heterogeneously dense. This may lower the sensitivity of mammography. Findings: There are benign-appearing round along with linear vascular calcifications scattered throughout the right breast redemonstrated. There is no suspicious group of microcalcifications or new suspicious mass in the right breast. Overall Assessment: Benign, BI-RAD 2 Management: Screening Mammogram of the right breast in 1 year. A clinical breast exam by your physician is recommended on an annual basis and results should be correlated with mammographic findings. Electronically signed and approved by: Felipe Keene M.D.
== END | disposition home or self-care (01) ==
LOC: RADMAMWWP 11:09
PROVIDERS: ATTEND Internal Medicine
DX: C50.019 Malignant neoplasm of nipple and areola, unspecified female breast (principal); E55.9 Vitamin D deficiency, unspecified; N18.32 Chronic kidney disease, stage 3b; N25.81 Secondary hyperparathyroidism of renal origin; N39.0 Urinary tract infection, site not specified
CPT/HCPCS: 77067; 80053; 82306; 82570; 82728; 83540; 83550; 83735; 83970; 84100; 84156; 84550; 85025; 86300

== ENCOUNTER → 2022-01-04 | Outpatient (CLI) | payer MEDICARE, BC ==
[2022-01-04 11:27] VITALS: BP 141/70; PULSE 86; RESP 16; TEMP 98.1
== END ==
LOC: PROCWHC3 11:09
PROVIDERS: ATTEND Family Medicine
DX: M81.0 Age-related osteoporosis without current pathological fracture (principal); Z88.0 Allergy status to penicillin; Z91.018 Allergy to other foods; Z87.891 Personal history of nicotine dependence
CPT/HCPCS: 96372; J0897

== ENCOUNTER → 2022-01-18 | Outpatient (CLI) | payer MEDICARE, BC ==
--- NOTE | 2022-01-19 11:58 | CT ---
EXAMINATION TYPE: CT chest w con DATE OF EXAM: 01/18/2022 COMPARISON: Radiograph 01/06/[address] 03/28/2018 HISTORY: 81-year-old female R91.8, ABN LUNG AZEVEDO. HX OF L BREAST CA TECHNIQUE: Contiguous axial scanning of the chest after the administration of 70 mL of Isovue 300. C oronal/sagittal reconstructions performed. CT DLP: 120mGycm. Automatic exposure control utilized for a dose reduction. FINDINGS: The heart is upper limits of normal in size without pericardial effusion. Extensive three-vessel brooks nary artery calcifications are present and are a marker for coronary artery disease. Ectatic ascending aorta 3.8 cm. Moderate atherosclerotic calcifications throughout with bovine config uration to the aortic arch as well as aberrant right subclavian artery taking a retroesophageal cours e. Bilateral mildly enlarged caliber to the main right and left pulmonary arteries up to 2.7 cm suggesti ng underlying pulmonary hypertension. Calcified mediastinal and right hilar lymph nodes compatible with prior granulomatous disease. No tho racic lymphadenopathy by CT size criteria. The patient is status post left mastectomy. Scattered areas of atelectasis and scarring in both lungs. Moderate centrilobular emphysema. Redemonstrated biapical pleural-parenchymal scarring. Subpleural re ticular densities and subpleural microcystic change anterior left lung underlying the mastectomy site likely post therapy change. Compared to 03/28/2018, there is new right middle lobe opacification and volume loss. No central obstr ucting lesion is identified. 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 P artially visualized atrophic right kidney. Scattered hepatic hypodensities measuring up to 2.0 cm a n onspecific, probably cysts. Bones: There is new sclerosis along the left side of the sternal manubrium that could be on a degener ative basis, axial image 11 and coronal image 17. No additional suspicious sclerosis is seen. IMPRESSION: 1. Status post left mastectomy with similar underlying reticulations along the anterior left lung com patible with posttreatment change. 2. New sclerosis involving the left sternal manubrium. Findings are nonspecific and may reflect subch ondral sclerosis relating to degenerative change at the sternoclavicular joint. Given the patient's h istory of prior breast cancer, consider whole body bone scan to survey the remainder of the skeleton. 3. Compared to 2019, there is new opacification and collapse of the right middle lobe. No central obs tructing mass is seen. Consider pulmonary medicine follow-up. Correlate to exclude any signs/symptoms of pneumonia. 4. COPD with moderate emphysema and evidence of prior granulomatous disease. Incidental aberrant righ t subclavian artery. 5. CAD with extensive three-vessel coronary artery calcifications. Partially visualized infrarenal AA A measuring at least 3.0 cm. Dedicated imaging can exclude a larger aneurysm.
== END | disposition home or self-care (01) ==
LOC: RADCTMAIN 14:26
PROVIDERS: ATTEND Internal Medicine
DX: J43.9 Emphysema, unspecified (principal); I25.10 Atherosclerotic heart disease of native coronary artery without angina pectoris; I71.43 Infrarenal abdominal aortic aneurysm, without rupture; Q27.8 Other specified congenital malformations of peripheral vascular system; R91.8 Other nonspecific abnormal finding of lung field; Z90.12 Acquired absence of left breast and nipple; Z85.3 Personal history of malignant neoplasm of breast
CPT/HCPCS: 82565; 84520; 71260; 36415; Q9967

== ENCOUNTER → 2022-05-20 | Outpatient (CLI) | payer MEDICARE, BC ==
[2022-05-20 18:13] LABS: Basophils # (A) 0.07 X 10*3/uL (0.00-0.10); Basophils % (A) 0.9 %; Eosinophils # (A) 0.07 X 10*3/uL (0.04-0.35); Eosinophils % (A) 0.9 %; HCT 41.7 % (37.2-46.3); HGB 13.2 g/dL (12.0-15.0); Lymphocytes # (A) 1.08 X 10*3/uL (0.90-5.00); Lymphocytes % (A) 13.2 %; MCH 28.4 pg (27.0-32.0); MCHC 31.7 g/dL (32.0-37.0); MCV 89.9 fL (80.0-97.0); Mean Platelet Volume 10.1 fL (9.5-12.2); Monocytes # (A) 0.88 X 10*3/uL (0.20-1.00); Monocytes % (A) 10.8 %; NRBC Per 100 WBC 0 /100 WBCS (0.0-0.0); Neutrophils # (A) 5.99 X 10*3/uL (1.80-7.70); Neutrophils % (A) 73.2 %; Platelet Count 164 X 10*3/uL (140-440); RBC 4.64 X 10*6/uL (4.10-5.20); RDW 14.2 % (11.5-14.5); WBC 8.17 X 10*3/uL (4.50-10.00)
[2022-05-20 19:55] LABS: % Iron Saturation 13.32 (12.00-45.00); African American GFR (CKD) 50.1 (60.0-200.0); Anion Gap 15.2 mmol/L (10.00-18.00); BUN/Creat Ratio 17.37 Ratio (12.00-20.00); Blood Urea Nitrogen 20.5 mg/dL (9.0-27.0); Calcium 9.5 mg/dL (8.7-10.3); Magnesium 2.1 mg/dL (1.5-2.4); Non-African American GFR(CKD) 43.2 (60.0-200.0); Phosphorus 2.7 mg/dL (2.4-5.1); Uric Acid 5.4 mg/dL (2.9-7.7)
[2022-05-20 20:38] LABS: Albumin 4.1 g/dL (3.8-4.9)
[2022-05-20 22:56] LABS: Appearance,Urine Clear (Clear); Bilirubin,Urine Negative (Negative); Blood,Urine Negative (Negative); Color,Urine Yellow (Yellow); Ketones,Urine Trace mg/dL (Negative); Nitrite,Urine Negative (Negative); PH, Urine 5.5 (5.0-8.0); Specific Gravity,Urine 1.023 (1.001-1.030); Urobilinogen,Urine 0.2 (0.2,1.0)
[2022-05-20 23:12] LABS: Bacteria,Urine None Seen /HPF (None Seen); Calcium Oxalate Crystals,Urine Present /LPF (None Seen)
== END | disposition home or self-care (01) ==
LOC: LABWHC1 12:59
PROVIDERS: ATTEND Internal Medicine Nephrology
DX: N18.32 Chronic kidney disease, stage 3b (principal); E55.9 Vitamin D deficiency, unspecified; D63.1 Anemia in chronic kidney disease; E21.3 Hyperparathyroidism, unspecified; M10.9 Gout, unspecified; N39.0 Urinary tract infection, site not specified; R80.9 Proteinuria, unspecified
CPT/HCPCS: 36415; 80048; 81001; 82040; 82043; 82306; 82570; 82728; 83540; 83550; 83735; 83970; 84100; 84550; 85025

== ENCOUNTER 2022-06-28 18:30 | Emergency (ER) | payer MEDICARE, BC ==
--- NOTE | 2022-06-28 19:00 | ED ---
Psych HPI <Ferdinand Almonte - Last Filed: 06/29/22 08:04> - General Source: patient, family, RN notes reviewed, old records reviewed, Caregiver Mode of arrival: wheelchair Limitations: no limitations - History of Present Illness MD Complaint: suicidal ideation, feels depressed, altered mental status (Dementia) -: unknown Associated Psychiatric Symptoms: depression, suicidal ideation History of same: Yes Quality: constant Improves With: none Worsens With: none Context: significant life stressor Associated Symptoms: denies other symptoms Treatments Prior to Arrival: placed on mental health hold <Ferdinand Nunez - Last Filed: 06/29/22 17:32> - General Chief Complaint: Psychiatric Symptoms Stated Complaint: mental health Time Seen by Provider: 06/28/22 18:52 - History of Present Illness Initial Comments: This is an 82-year-old male DF for evaluation patient does suffer from dementia coming in with family for suicidal thoughts (Ferdinand Nunez) - Related Data Home Medications Medication Instructions Recorded Confirmed ALPRAZolam [Xanax] 0.25 mg PO BID PRN 04/02/16 06/28/22 Albuterol Inhaler [Ventolin Hfa 2 puff INHALATION RT-QID PRN 04/02/16 06/28/22 Inhaler] Albuterol Nebulized [Ventolin 2.5 mg INHALATION RT-QID PRN 04/02/16 06/28/22 Nebulized] Anastrozole [Arimidex] 1 mg PO DAILY 04/02/16 06/28/22 Calcium Carbonate [Calcium] 1,200 mg PO DAILY 04/02/16 06/28/22 Cholecalciferol [Vitamin D3 (25 25 mcg PO DAILY 04/02/16 06/28/22 Mcg = 1000 Iu)] Losartan Potassium [Cozaar] 50 mg PO HS 04/02/16 06/28/22 Pravastatin Sodium [Pravachol] 40 mg PO DAILY 04/02/16 06/28/22 Denosumab [Prolia] 60 mg SQ Q180D 03/23/19 06/28/22 Potassium Chloride ER [K-Dur 20] 20 meq PO DAILY 03/23/19 06/28/22 Beclomethasone Dip 80 Mcg/Puff 1 puff INHALATION RT-BID 06/28/22 06/28/22 [Qvar 80 mcg] Donepezil 23mg 23 mg PO DAILY 06/28/22 06/28/22 Dorzolamide HCl/Pf [Dorzolamide 2% 1 drop RIGHT EYE BID 06/28/22 06/28/22 Eye Drop] Latanoprost [Latanoprost 0.005%] 1 drop BOTH EYES HS 06/28/22 06/28/22 Potassium Chloride ER [K-Dur 20] 10 meq PO HS 06/28/22 06/28/22 amLODIPine [Norvasc] 2.5 mg PO DAILY 06/28/22 06/28/22 calcitrioL [Rocaltrol] 0.25 mcg PO TU 06/28/22 06/28/22 traZODone HCL [Desyrel] 50 mg PO HS 06/28/22 06/28/22 Allergies Allergy/AdvReac Type Severity Reaction Status Date / Time [place] nut Allergy Anaphylaxis Verified 06/28/22 21:04 Penicillins Allergy Rash/Hives Verified 06/28/22 21:04 Review of Systems ROS Other: All systems not noted in ROS Statement are negative. <Ferdinand Almonte - Last Filed: 06/29/22 08:04> ROS Other: All systems not noted in ROS Statement are negative. <Ferdinand Nunez - Last Filed: 06/29/22 17:32> ROS Statement: Those systems with pertinent positive or pertinent negative responses have been documented in the HPI. Past Medical History Past Medical History: Cancer, COPD, Hyperlipidemia, Hypertension, Renal Disease Additional Past Medical History / Comment(s): hx: breast cancer. KIDNEY AND LIVER CYST. OSTEOPOROSIS. History of Any Multi-Drug Resistant Organisms: None Reported Past Surgical History: Breast Surgery Additional Past Surgical History / Comment(s): lt mastectomy Past Anesthesia/Blood Transfusion Reactions: No Reported Reaction Past Psychological History: Anxiety Smoking Status: Former smoker Past Alcohol Use History: None Reported Past Drug Use History: None Reported - Past Family History Mother Family Medical History: Cancer Brother(s) Family Medical History: Cancer <Ferdinand Nunez - Last Filed: 06/29/22 17:32> General Exam Limitations: altered mental status General appearance: alert, in no apparent distress Head exam: Present: atraumatic, normocephalic, normal inspection Eye exam: Present: normal appearance, PERRL, EOMI. Absent: scleral icterus, conjunctival injection, periorbital swelling ENT exam: Present: normal exam, mucous membranes moist Neck exam: Present: normal inspection. Absent: tenderness, meningismus, lymp hadenopathy Respiratory exam: Present: normal lung sounds bilaterally. Absent: respiratory distress, wheezes, rales, rhonchi, stridor Cardiovascular Exam: Present: regular rate, normal rhythm, normal heart sounds. Absent: systolic murmur, diastolic murmur, rubs, gallop, clicks GI/Abdominal exam: Present: soft, normal bowel sounds. Absent: distended, tenderness, guarding, rebound, rigid Extremities exam: Present: normal inspection, full ROM, normal capillary refill. Absent: tenderness, pedal edema, joint swelling, calf tenderness Back exam: Present: normal inspection Neurological exam: Present: alert, oriented X3, CN II-XII intact Psychiatric exam: Present: normal affect, normal mood Skin exam: Present: warm, dry, intact, normal color. Absent: rash <Ferdinand Nunez - Last Filed: 06/29/22 17:32> Course <Ferdinand Nunez - Last Filed: 06/29/22 17:32> Vital Signs 06/28/22 06/29/22 06/29/22 18:41 01:23 07:00 Temperature 98.4 F 97.5 F L Pulse Rate 101 H 77 68 Respiratory 20 20 18 Rate Blood Pressure 144/83 170/81 130/80 O2 Sat by Pulse 100 96 92 L Oximetry 06/29/22 06/29/22 13:19 15:06 Temperature 98.3 F 98.4 F Pulse Rate 93 90 Respiratory 18 18 Rate Blood Pressure 108/56 110/60 O2 Sat by Pulse 94 L 94 L Oximetry - Reevaluation(s) Reevaluation #1: 06/28/22 19:35 Medical record is reviewed 06/28/22 19:35 Medical clear for psychiatric evaluation (Ferdinand Nunez) Medical Decision Making - Lab Data Result diagrams: 06/28/22 19:34 06/28/22 19:34 <Ferdinand Almonte - Last Filed: 06/29/22 08:04> - Lab Data Result diagrams: 06/28/22 19:34 06/28/22 19:34 <Ferdinand Nunez - Last Filed: 06/29/22 17:32> - Medical Decision Making EKG is interpreted by myself shows a sinus rhythm at 92 bpm WA interval is on a 370 QRS is 93 Q-T intervals 395 QTC is 445. Patient's EKG shows no ST segment elevation or depression. (Ferdinand Almonte) 82 female to the ER for evaluation patient will be transferred for inpatient psychiatric evaluation and treatment (Ferdinand Nunez) - Lab Data Lab Results 06/28/22 06/28/22 06/28/22 Range/Units 19:34 19:34 20:46 WBC 9.4 (3.8-10.6) k/uL RBC 4.91 (3.80-5.40) m/uL Hgb 14.4 (11.4-16.0) gm/dL Hct 44.4 (34.0-46.0) % MCV 90.3 (80.0-100.0) fL MCH 29.3 (25.0-35.0) pg MCHC 32.4 (31.0-37.0) g/dL RDW 13.9 (11.5-15.5) % Plt Count 175 (150-450) k/uL MPV 7.4 Neutrophils % 75 % Lymphocytes % 13 % Monocytes % 8 % Eosinophils % 1 % Basophils % 1 % Neutrophils # 7.0 (1.3-7.7) k/uL Lymphocytes # 1.3 (1.0-4.8) k/uL Monocytes # 0.8 (0-1.0) k/uL Eosinophils # 0.1 (0-0.7) k/uL Basophils # 0.1 (0-0.2) k/uL Sodium 139 (137-145) mmol/L Potassium 4.0 (3.5-5.1) mmol/L Chloride 103 (98-107) mmol/L Carbon Dioxide 26 (22-30) mmol/L Anion Gap 10 mmol/L BUN 26 H (7-17) mg/dL Creatinine 1.27 H (0.52-1.04) mg/dL Est GFR (CKD-EPI)AfAm 46 (>60 ml/min/1.73 sqM) Est GFR (CKD-EPI)NonAf 40 (>60 ml/min/1.73 sqM) Glucose 102 H (74-99) mg/dL Calcium 9.5 (8.4-10.2) mg/dL Urine Color Light Yellow Urine Appearance Clear (Clear) Urine pH 6.5 (5.0-8.0) Ur Specific [place] 1.013 (1.001-1.035) Urine Protein Trace H (Negative) Urine Glucose (UA) Negative (Negative) Urine Ketones Negative (Negative) Urine Blood Trace H (Negative) Urine Nitrite Negative (Negative) Urine Bilirubin Negative (Negative) Urine Urobilinogen <2.0 (<2.0) mg/dL Ur Leukocyte Esterase Negative (Negative) Urine RBC 8 H (0-5) /hpf Urine WBC 2 (0-5) /hpf Hyaline Casts 1 (0-2) /lpf Urine Mucus Rare H (None) /hpf Salicylates <1.0 mg/dL Urine Opiates Screen Not Detected (NotDetected) Ur Oxycodone Screen Not Detected (NotDetected) Urine Methadone Screen Not Detected (NotDetected) Ur Propoxyphene Screen Not Detected (NotDetected) Acetaminophen <10.0 ug/mL Ur Barbiturates Screen Not Detected (NotDetected) U Tricyclic Antidepress Not Detected (NotDetected) Ur Phencyclidine Scrn Not Detected (NotDetected) Ur Amphetamines Screen Not Detected (NotDetected) U Methamphetamines Scrn Not Detected (NotDetected) U Benzodiazepines Scrn Detected H (NotDetected) Urine Cocaine Screen Not Detected (NotDetected) U Marijuana (THC) Screen Not Detected (NotDetected) Serum Alcohol <10 mg/dL Coronavirus (PCR) (Not Detectd) 06/29/22 Range/Units 00:27 WBC (3.8-10.6) k/uL RBC (3.80-5.40) m/uL Hgb (11.4-16.0) gm/dL Hct (34.0-46.0) % MCV (80.0-100.0) fL MCH (25.0-35.0) pg MCHC (31.0-37.0) g/dL RDW (11.5-15.5) % Plt Count (150-450) k/uL MPV Neutrophils % % Lymphocytes % % Monocytes % % Eosinophils % % Basophils % % Neutrophils # (1.3-7.7) k/uL Lymphocytes # (1.0-4.8) k/uL Monocytes # (0-1.0) k/uL Eosinophils # (0-0.7) k/uL Basophils # (0-0.2) k/uL Sodium (137-145) mmol/L Potassium (3.5-5.1) mmol/L Chloride (98-107) mmol/L Carbon Dioxide (22-30) mmol/L Anion Gap mmol/L BUN (7-17) mg/dL Creatinine (0.52-1.04) mg/dL Est GFR (CKD-EPI)AfAm (>60 ml/min/1.73 sqM) Est GFR (CKD-EPI)NonAf (>60 ml/min/1.73 sqM) Glucose (74-99) mg/dL Calcium (8.4-10.2) mg/dL Urine Color Urine Appearance (Clear) Urine pH (5.0-8.0) Ur Specific [place] (1.001-1.035) Urine Protein (Negative) Urine Glucose (UA) (Negative) Urine Ketones (Negative) Urine Blood (Negative) Urine Nitrite (Negative) Urine Bilirubin (Negative) Urine Urobilinogen (<2.0) mg/dL Ur Leukocyte Esterase (Negative) Urine RBC (0-5) /hpf Urine WBC (0-5) /hpf Hyaline Casts (0-2) /lpf Urine Mucus (None) /hpf Salicylates mg/dL Urine Opiates Screen (NotDetected) Ur Oxycodone Screen (NotDetected) Urine Methadone Screen (NotDetected) Ur Propoxyphene Screen (NotDetected) Acetaminophen ug/mL Ur Barbiturates Screen (NotDetected) U Tricyclic Antidepress (NotDetected) Ur Phencyclidine Scrn (NotDetected) Ur Amphetamines Screen (NotDetected) U Methamphetamines Scrn (NotDetected) U Benzodiazepines Scrn (NotDetected) Urine Cocaine Screen (NotDetected) U Marijuana (THC) Screen (NotDetected) Serum Alcohol mg/dL Coronavirus (PCR) Not Detected (Not Detectd) Disposition <Ferdinand Almonte - Last Filed: 06/29/22 08:04> Is patient prescribed a controlled substance at d/c from ED?: No <Ferdinand Nunez - Last Filed: 06/29/22 17:32> Clinical Impression: Depression, Psychosis Disposition: TRANSFER TO PSYCH HOSP/UNIT Condition: Fair Referrals: Agustin Rivera MD [Primary Care Provider] - 1-2 days
[2022-06-28 19:55] LABS: Basophils # (A) 0.1 k/uL (0-0.2); Basophils % (A) 1 %; Eosinophils # (A) 0.1 k/uL (0-0.7); Eosinophils % (A) 1 %; HCT 44.4 % (34.0-46.0); HGB 14.4 gm/dL (11.4-16.0); Lymphocytes # (A) 1.3 k/uL (1.0-4.8); Lymphocytes % (A) 13 %; MCH 29.3 pg (25.0-35.0); MCHC 32.4 g/dL (31.0-37.0); MCV 90.3 fL (80.0-100.0); Mean Platelet Volume 7.4; Monocytes # (A) 0.8 k/uL (0-1.0); Monocytes % (A) 8 %; Neutrophils % (A) 75 %; Platelet Count 175 k/uL (150-450); RBC 4.91 m/uL (3.80-5.40); RDW 13.9 % (11.5-15.5); WBC 9.4 k/uL (3.8-10.6)
[2022-06-28 20:36] LABS: Acetaminophen <10.0 ug/mL; African American GFR (CKD) 46 (>60 ml/min/1.73 sqM); Alcohol <10 mg/dL; Anion Gap 10 mmol/L; Blood Urea Nitrogen 26 mg/dL (7-17); Calcium 9.5 mg/dL (8.4-10.2); Carbon Dioxide 26 mmol/L (22-30); Chloride 103 mmol/L (98-107); Glucose 102 mg/dL (74-99); Non-African American GFR(CKD) 40 (>60 ml/min/1.73 sqM); Salicylate <1.0 mg/dL; Sodium 139 mmol/L (137-145)
[2022-06-28 21:14] LABS: Appearance,Urine Clear (Clear); Bilirubin,Urine Negative (Negative); Blood,Urine Trace (Negative); Color,Urine Light Yellow; Glucose,Urine (UA) Negative (Negative); Hyaline Casts,Urine 1 /lpf (0-2); Ketones,Urine Negative (Negative); Leukocyte Esterase,Urine Negative (Negative); Mucus,Urine Rare /hpf; Nitrite,Urine Negative (Negative); PH, Urine 6.5 (5.0-8.0); Protein,Urine Trace (Negative); RBC,Urine 8 /hpf (0-5); Specific Gravity,Urine 1.013 (1.001-1.035); Urobilinogen,Urine <2.0 mg/dL (<2.0); WBC,Urine 2 /hpf (0-5)
[2022-06-28 21:24] LABS: Amphetamine Screen,Urine Not Detected (NotDetected); Barbiturate Screen,Urine Not Detected (NotDetected); Benzodiazepines Screen,Urine Detected (NotDetected); Cocaine Screen,Urine Not Detected (NotDetected); Methadone Screen, Urine Not Detected (NotDetected); Opiate Screen,Urine Not Detected (NotDetected); Oxycodone Screen, Urine Not Detected (NotDetected); Phencyclidine Screen,Urine Not Detected (NotDetected); Tricyclic Antidepressant,Urine Not Detected (NotDetected); Urn Cannabinoid Scrn Not Detected (NotDetected)
[2022-06-29] MEDS: ALPRAZolam 0.25 MG TAB PO PRN ×2 (02:04→08:43)
[2022-06-29 07:34] VITALS: RESP 18
[2022-06-29] MEDS ORDERED: FLUTICASONE 110 MCG INHALER (MHU) INHALATION SCH (08:00)
[2022-06-29] MEDS ORDERED: CALCIUM CARBONATE 500 MG CHEWABLE PO SCH (09:00)
[2022-06-29] MEDS ORDERED: DORZOLAMIDE HCL 2% DROPS 10 ML BTL RIGHT EYE SCH (09:00)
[2022-06-29] MEDS ORDERED: amLODIPine 2.5 MG TAB PO SCH (09:00)
[2022-06-29] MEDS ORDERED: CHOLECALCIFEROL 25 MCG (1000 IU) TABLET PO SCH (09:00)
[2022-06-29] MEDS ORDERED: ANASTROZOLE 1 MG TAB PO SCH (09:00)
[2022-06-29] MEDS ORDERED: PRAVASTATIN SODIUM 40 MG TAB PO SCH (09:00)
[2022-06-29] MEDS ORDERED: POTASSIUM CHLORIDE ER 20 MEQ TAB.ER PO SCH (09:00)
[2022-06-29] MEDS ORDERED: DONEPEZIL 10 MG TAB PO SCH (09:00)
[2022-06-29 15:08] VITALS: BP 110/60; PULSE 90; TEMP 98.4
[2022-06-29] MEDS ORDERED: traZODone HCL 50 MG TAB PO SCH (21:00)
[2022-06-29] MEDS ORDERED: LATANOPROST 0.005% OPHTH DROPS 2.5 ML BTL BOTH EYES SCH (21:00)
[2022-06-29] MEDS ORDERED: POTASSIUM CHLORIDE ER 10 MEQ TAB.ER.PRT PO SCH (21:00)
[2022-06-29] MEDS ORDERED: LOSARTAN 50 MG TAB PO SCH (21:00)
== END 2022-06-29 15:06 ==
LOC: EC 18:30
DX: F29 Unspecified psychosis not due to a substance or known physiological condition (principal); F32.A Depression, unspecified; J44.9 Chronic obstructive pulmonary disease, unspecified; E78.5 Hyperlipidemia, unspecified; I10 Essential (primary) hypertension; F41.9 Anxiety disorder, unspecified; Z87.891 Personal history of nicotine dependence; Z79.899 Other long term (current) drug therapy; Z91.018 Allergy to other foods; Z88.8 Allergy status to other drugs, medicaments and biological substances; Z20.822 Contact with and (suspected) exposure to COVID-19
CPT/HCPCS: 36415; 94640; 93005; 80048; 85025; 81001; 80306; 80143; 87635; 80179; 99285; G0480; S0170; 80320